=== PATIENT | male | born 1960 | race Caucasian/White ===

== ENCOUNTER 2018-01-28 14:25 | Inpatient (IN) | payer MEDICAID ==
[2018-01-28] MEDS ORDERED: NORMAL SALINE 500 ML IV ONE (16:28)
[2018-01-28] MEDS ORDERED: ONDANSETRON HCL INJ/PF 4 MG/2 ML SDV IV ONE (16:28)
--- NOTE | 2018-01-28 16:28 | ER Document Report ---
ED Medical Screen (RME) - General Chief Complaint: Blood Pressure Problem Stated Complaint: BLOOD PRESSURE ISSUES Time Seen by Provider: 01/28/18 16:27 Mode of Arrival: Ambulatory Information source: Patient Notes: This is a 57-year-old man with a history of COPD, hypertension, chronic back pain, 1 pack/day smoking who presents with dizziness, weakness, fluctuating blood pressure, decreased p.o. intake. Patient smokes 1 pack/day. He stopped drinking alcohol 3 years ago. TRAVEL OUTSIDE OF THE [place] IN LAST 30 DAYS: No - Related Data Allergies/Adverse Reactions: No Known Allergies Allergy (Unverified 06/19/13 05:12) Past Medical History - Past Medical History Cardiac Medical History: Reports: Hx Hypertension Pulmonary Medical History: Reports: Hx COPD Neurological Medical History: Denies: Hx Seizures Renal/ Medical History: Denies: Hx Peritoneal Dialysis Musculoskeltal Medical History: Reports Hx Musculoskeletal Deformity, Reports Hx Musculoskeletal Trauma Psychiatric Medical History: Reports: Hx Depression Past Surgical History: Reports: Hx Orthopedic Surgery - back - patient unclear on details - Immunizations Hx Diphtheria, Pertussis, Tetanus Vaccination: Yes Physical Exam - Vital signs Vitals: Temp Pulse Resp BP Pulse Ox 97.8 F 89 16 155/74 H 100 01/28/18 14:52 01/28/18 14:52 01/28/18 14:52 01/28/18 14:52 01/28/18 14:52 Course - Vital Signs Vital signs: Temp Pulse Resp BP Pulse Ox 97.8 F 89 16 155/74 H 100 01/28/18 14:52 01/28/18 14:52 01/28/18 14:52 01/28/18 14:52 01/28/18 14:52
[2018-01-28 17:24] LABS: ABSOLUTE BASOPHILS # (AUTO) 0.1 10^3/uL (0.0-0.2); ABSOLUTE EOSINOPHILS # (AUTO) 0.2 10^3/uL (0.0-0.6); ABSOLUTE LYMPHOCYTES (AUTO) 1.8 10^3/uL (0.5-4.7); ABSOLUTE NEUT (AUTO) 8.5 10^3/uL (1.7-8.2); BASOPHILS % (AUTO) 1.3 % (0-2); EOSINOPHILS % (AUTO) 1.5 % (0-6); HEMATOCRIT 33.5 % (37.9-51.0); HEMOGLOBIN 11.3 g/dL (13.5-17.0); LYMPHOCYTES % (AUTO) 15.4 % (13-45); MEAN CORPUSCULAR HGB CONC 33.7 g/dL (32.0-36.0); MEAN CORPUSCULAR VOLUME 83 fl (80-97); MONOCYTES % (AUTO) 8.3 % (3-13); PLATELET COUNT 497 10^3/uL (150-450); RED BLOOD COUNT 4.03 10^6/uL (4.35-5.55); RED CELL DISTRIBUTION WIDTH 15.9 % (11.5-14.0); SEGMENTED NEUTROPHILS % (AUTO) 73.5 % (42-78); TOTAL CELLS COUNTED % (AUTO) 100 %; WHITE BLOOD COUNT 11.6 10^3/uL (4.0-10.5)
[2018-01-28 17:43] LABS: ALANINE AMINOTRANSFERASE 17 U/L (21-72); ALBUMIN 3.5 g/dL (3.5-5.0); ALKALINE PHOSPHATASE 205 U/L (38-126); ANION GAP 14 (5-19); ASPARTATE AMINO TRANSFERASE 28 U/L (17-59); BILIRUBIN,DIRECT 0.4 mg/dL (0.0-0.4); BILIRUBIN,TOTAL 0.6 mg/dL (0.2-1.3); BLOOD UREA NITROGEN 13 mg/dL (7-20); CALCIUM 9.7 mg/dL (8.4-10.2); CARBON DIOXIDE 29 mmol/L (22-30); CHLORIDE 92 mmol/L (98-107); GLUCOSE 98 mg/dL (75-110); POTASSIUM 5.6 mmol/L (3.6-5.0); SODIUM 134.8 mmol/L (137-145); TOTAL PROTEIN 7.5 g/dL (6.3-8.2)
--- NOTE | 2018-01-28 18:00 | RADIOLOGY REPORT (SQ) ---
EXAM DESCRIPTION: HIP LEFT AP/LATERAL COMPLETED DATE/TIME: 01/28/2018 5:29 pm REASON FOR STUDY: left hip pain COMPARISON: None. NUMBER OF VIEWS: Two views. TECHNIQUE: AP pelvis and additional frog-leg view of the left hip. LIMITATIONS: None. FINDINGS: MINERALIZATION: Normal. LEFT HIP: No fracture or dislocation. No worrisome bone lesions. RIGHT HIP: No fracture or dislocation. No worrisome bone lesions. PUBIS AND ISCHIUM: No fracture. PELVIS: No fracture. SACRUM: No fracture or dislocation. No worrisome bone lesions. LOWER LUMBAR SPINE: No fracture or dislocation. No worrisome bone lesions. No significant disc disea se. SOFT TISSUES: No findings. OTHER: No other significant finding. IMPRESSION: NO RADIOGRAPHIC EVIDENCE OF ACUTE INJURY. TECHNICAL DOCUMENTATION: JOB ID: [id number] [place]-72 2010 [employer]- All Rights Reserved Reading location - IP/workstation name: [email or web address]
--- NOTE | 2018-01-28 18:03 | RADIOLOGY REPORT (SQ) ---
EXAM DESCRIPTION: CHEST 2 VIEWS COMPLETED DATE/TIME: 01/28/2018 5:29 pm REASON FOR STUDY: cough COMPARISON: 01/03/2014 TECHNIQUE: Frontal and lateral radiographic views of the chest acquired. NUMBER OF VIEWS: Two view. LIMITATIONS: None. FINDINGS: LUNGS AND PLEURA: No pneumothorax. Similar scarring at the left costophrenic angle. No p leural effusion. Significantly increased architectural distortion and parenchymal scarring- opacitie s in both lung apices, left greater than right. Slightly increased apical pleural thickening. Posts urgical changes are again noted in the left apex and upper mediastinal border. MEDIASTINUM AND HILAR STRUCTURES: Stable. HEART AND VASCULAR STRUCTURES: Stable. BONES: No acute findings. HARDWARE: None in the chest. OTHER: No other significant finding. IMPRESSION: Significantly increased architectural distortion and parenchymal scarring- opacities in both lung apices, left greater than right. Slightly increased apical pleural thickening. Postsurgic al changes are again noted in the left apex and upper mediastinal border. TECHNICAL DOCUMENTATION: JOB ID: [id number] [place]-72 2010 [employer]- All Rights Reserved Reading location - IP/workstation name: [email or web address]
[2018-01-28 18:51] LABS: APPEARANCE,URINE CLEAR; BILIRUBIN,URINE NEGATIVE (NEGATIVE); COLOR,URINE STRAW; GLUCOSE, URINE NEGATIVE (NEGATIVE); KETONES,URINE NEGATIVE (NEGATIVE); LEUKOCYTE ESTERASE,URINE NEGATIVE (NEGATIVE); NITRITE,URINE NEGATIVE (NEGATIVE); PROTEIN,URINE NEGATIVE (NEGATIVE); URINE SPECIFIC GRAVITY 1.003; UROBILINOGEN,URINE NEGATIVE mg/dL (<2.0)
[2018-01-28] MEDS ORDERED: LIDOCAINE 5% (700 MG) TRANSDERMAL ADH..PATCH TP ONE (21:15)
[2018-01-28] MEDS ORDERED: KETOROLAC TROMETHAMINE INJ/PF 30 MG/1 ML SDV IV ONE (21:15)
[2018-01-28] MEDS ORDERED: MORPHINE SULFATE IR 15 MG TABLET PO ONE (21:15)
--- NOTE | 2018-01-28 21:17 | ER Document Report ---
ED General - General Chief Complaint: Blood Pressure Problem Stated Complaint: BLOOD PRESSURE ISSUES Time Seen by Provider: 01/28/18 16:27 Mode of Arrival: Ambulatory Notes: Patient is a 57-year-old male with a past medical history of COPD, active smoker , hypertension, who presents with multiple complaints. It is initially somewhat difficult to ascertain exactly what the patient's primary complaint is but it does become clear after several minutes that his main concern is 3 weeks of feeling generally unwell having a persistent cough with sputum production as well as having diffuse body aches. He does also complain of chronic low back pain and right hip pain which are not new or different today. He also complains that his blood pressure fluctuates frequently. Nothing seems to improve or worsen his symptoms. He has not seen his general doctor regarding these concerns. He has not had fever at home. TRAVEL OUTSIDE OF THE [place] IN LAST 30 DAYS: No - Related Data Allergies/Adverse Reactions: No Known Allergies Allergy (Verified 01/28/18 18:15) Past Medical History - General Information source: Patient - Social History Smoking Status: Current Every Day Smoker Frequency of alcohol use: None Drug Abuse: None Lives with: Spouse/Significant other Family History: Reviewed & Not Pertinent Patient has suicidal ideation: No Patient has homicidal ideation: No - Past Medical History Cardiac Medical History: Reports: Hx Hypertension Pulmonary Medical History: Reports: Hx COPD Neurological Medical History: Denies: Hx Seizures Renal/ Medical History: Denies: Hx Peritoneal Dialysis Musculoskeletal Medical History: Reports Hx Musculoskeletal Deformity, Reports Hx Musculoskeletal Trauma Psychiatric Medical History: Reports: Hx Depression Past Surgical History: Reports: Hx Orthopedic Surgery - back - patient unclear on details - Immunizations Hx Diphtheria, Pertussis, Tetanus Vaccination: Yes Hx Pneumococcal Vaccination: 03/27/13 Review of Systems - Review of Systems Notes: Constitutional: Negative for fever. HENT: Negative for sore throat. Eyes: Negative for visual changes. Cardiovascular: Negative for chest pain. Respiratory: Positive for shortness of breath, positive for cough Gastrointestinal: Negative for abdominal pain, vomiting or diarrhea. Genitourinary: Negative for dysuria. Musculoskeletal: Positive for chronic low back pain Skin: Negative for rash. Neurological: Negative for headaches, weakness or numbness. 10 point ROS negative except as marked above and in HPI. Physical Exam - Vital signs Vitals: Temp Pulse Resp BP Pulse Ox 97.8 F 89 16 155/74 H 100 01/28/18 14:52 01/28/18 14:52 01/28/18 14:52 01/28/18 14:52 01/28/18 14:52 Interpretation: Hypertensive Notes: PHYSICAL EXAMINATION: GENERAL: Appears much older than stated age. In no acute distress HEAD: Atraumatic, normocephalic. EYES: Pupils equal round and reactive to light, extraocular movements intact, sclera anicteric, conjunctiva are normal. ENT: nares patent, oropharynx clear without exudates. Moderate dry mucous membranes. NECK: Normal range of motion, supple without lymphadenopathy LUNGS: Diminished breath sounds in all lung gonzalez most prominent in the bilateral upper lobes. Scattered expiratory wheezing. HEART: Regular rate and rhythm without murmurs ABDOMEN: Soft, nontender, normoactive bowel sounds. No guarding, no rebound. No masses appreciated. EXTREMITIES: Normal range of motion, no pitting or edema. No cyanosis. NEUROLOGICAL: No focal neurological deficits. Moves all extremities spontaneously and on command. PSYCH: Normal mood, normal affect. SKIN: Warm, Dry, normal turgor, no rashes or lesions noted. Course - Re-evaluation Re-evalutation: 01/28/18 21:16 Patient presents with multiple complaints although the main focus is related to a persistent cough that he has had with associated fatigue, body aches and feeling generally unwell. Patient's chest x-ray is quite abnormal with abnormal findings in the apices bilaterally which were not present in 2014. Patient has a remote history of exposure to TB but has never tested positive. No fungal exposures, exposures to asbestos, no chemical exposures. Long- standing smoker. Will CT the chest to further clarify what exactly is being identified on the chest x-ray. Labs are otherwise mostly unremarkable the exception of mild hyperkalemia. Patient does have chronic low back pain which is not new or different today and is not the primary focus of his visit. He does also complain about fluctuations of his blood pressure although it is consistently normal here today. 01/28/18 23:13 CT of the chest does show cavitary lesions in the left upper lobe, infiltrate in left upper lobe consistent with a pneumonia. Given the atypical nature of these findings I have discussed this case with the hospitalist Dr. Cowan to admit the patient. She has agreed and the patient is likewise agreeable. He has been started on levofloxacin in the interim. - Vital Signs Vital signs: Temp Pulse Resp BP Pulse Ox 97.8 F 89 19 169/109 H 98 01/28/18 14:52 01/28/18 14:52 01/29/18 00:01 01/29/18 00:01 01/29/18 00:01 - Laboratory Result Diagrams: 01/28/18 17:00 01/28/18 17:00 Laboratory results interpreted by me: 01/28/18 01/28/18 17:00 17:00 WBC 11.6 H RBC 4.03 L Hgb 11.3 L Hct 33.5 L RDW 15.9 H Plt Count 497 H Absolute Neutrophils 8.5 H Sodium 134.8 L Potassium 5.6 H Chloride 92 L ALT 17 L Alkaline Phosphatase 205 H - Diagnostic Test Radiology reviewed: Image reviewed, Reports reviewed Radiology results interpreted by me: 01/29/18 02:09 Chest x-ray scarring, possible infiltrate in the bilateral upper lobes Discharge - Discharge Clinical Impression: Cavitary lesion of lung Left upper lobe pneumonia Qualifiers: Pneumonia type: due to unspecified organism Qualified Code(s): J18.1 - Lobar pneumonia, unspecified organism Condition: Fair Disposition: ADMITTED OBSERVATION Admitting Provider: Hospitalist Unit Admitted: Telemetry
--- NOTE | 2018-01-28 22:07 | RADIOLOGY REPORT (SQ) ---
EXAM DESCRIPTION: CT CHEST WITH IV CONTRAST COMPLETED DATE/TME: 01/28/2018 21:15 CLINICAL HISTORY: 57 years, Male, cxr abnormalities This exam was performed according to our departmental dose-optimization program which includes automated exposure control, adjustment of the mA and/or kVp according to patient size and/or use of iterative reconstruction technique where applicable. Compared to chest x-ray dated 01/28/2018. FINDINGS: Aorta is mildly calcified without aneurysm. No significant mediastinal, hilar or axillary lymphadenopathy. No significant pleural or pericardial effusions. The visualized upper abdominal organs are within normal limits. Evaluation of the lung parenchyma demonstrates trachea and major airways to be patent. Marked scarring changes in the upper lobes including cavitary changes in the left upper lobe. Scarring changes in the lingula as well. No suspicious focal lung nodule or mass. Mild parenchymal airspace disease in the left upper lobe surrounding the cavitary and scarring changes may be due to superimposed pneumonia. IMPRESSION: Biapical scarring and emphysematous changes, particularly in the left upper lobe including cavitary changes. There may be superimposed pneumonia of the left upper lobe. No definite suspicious focal masses.
[2018-01-28] MEDS ORDERED: PROMETHAZINE HCL 25 MG TABLET PO PRN (23:20)
[2018-01-28] MEDS ORDERED: LEVOFLOXACIN 750 MG/D5W RTU 750 MG/150 ML RTUPB IV ONE (23:20)
[2018-01-28] MEDS ORDERED: ACETAMINOPHEN 325 MG TABLET PO PRN (23:20)
[2018-01-28] MEDS ORDERED: PROMETHAZINE HCL INJ 25 MG/1 ML VIAL IV PRN (23:20)
[2018-01-28] MEDS ORDERED: MAG HYDROX/AL HYDROX/SIMETH SUSP 30 ML UDCUP PO PRN (23:20)
[2018-01-28] MEDS ORDERED: HYDRALAZINE HCL INJ/PF 20 MG/1 ML SDV IV PRN (23:26)
[2018-01-28] MEDS ORDERED: NORMAL SALINE 1000 ML 1,000 ML IV PRN (23:32)
[2018-01-28] MEDS ORDERED: SODIUM POLYSTYRENE SULFONATE 15 GM/60 ML PO ONE (23:59)
--- NOTE | 2018-01-29 | PDOC H&P ---
History of Present Illness Admission Date/PCP: 01/28/2018 Dr. Shoemaker Patient complains of: Fluctuating blood pressure History of Present Illness: PHYLLIS GOODWIN is a 57 year old male with medical history of hypertension who comes to the emergency department initially complaining of fluctuating blood pressure, sometimes goes up to 180/90 and others it is measuring 154/45, associated with dizziness, headache, decreased appetite and unwellness feeling. Upon arrival to the emergency department his blood pressure was 155/74. Patient tells me that he has had persistent cough with clear sputum, shortness of breath, weight loss of 5 pounds in 3 weeks, symptoms are no new but has worsened lately. Chest x-ray with abnormal findings in both apices, subsequently CT of the chest was done and shows cavitary lesion in the left upper lobe with a possible infiltrate consistent with pneumonia and a large scar tissue. Patient does not require admission for antibiotics but the cavitary lesions are concerning and we will keep the patient under observation tonight with pulmonary consultation for evaluation and further recommendations. IV Levaquin given. Patient denies history of tuberculosis, denies ever having any person close to him with tuberculosis. Other complaints are chronic left hip pain for which he takes pain medications at home. Unfortunately patient still smokes 1 pack of cigarettes a day. Past Medical History Cardiac Medical History: Reports: Hypertension Pulmonary Medical History: Reports: Chronic Obstructive Pulmonary Disease (COPD) Psychiatric Medical History: Reports: Depression Past Surgical History Past Surgical History: Reports: Orthopedic Surgery - back - patient unclear on details Social History Smoking Status: Current Every Day Smoker - 1 pack/day Frequency of Alcohol Use: None - Used to be heavy drinker, quit 2 years ago Hx Recreational Drug Use: No Hx Prescription Drug Abuse: No Family History Family History: None Parental Family History Reviewed: Yes Children Family History Reviewed: NA Sibling(s) Family History Reviewed.: NA Medication/Allergy Home Medications: Lorazepam [Ativan 1 mg Tablet] 1 tab PO Q4H 01/03/14 Clonidine [Catapres-Tts 2 (0.2 mg/24 Hr) Transderm Ptch] 1 each TD Sa@10 #4 patch.tdwk 01/06/14 Folic Acid [Folvite 1 mg Tablet] 1 mg PO DAILY #30 tablet 01/06/14 Lisinopril [Prinivil 10 mg Tablet] 40 mg PO DAILY #0 tablet 01/06/14 Multivitamin [Tab-A-Princess (Multiple Vitamin) Tablet] 1 tab PO DAILY #30 tablet Nicotine [Nicoderm 21 mg/24 Hr Transderm Patch] 1 each TD DAILYP PRN #14 patch.td24 01/06/14 Omeprazole Magnesium [Prilosec Otc] 40 mg PO DAILY #0 tablet. 01/06/14 Oxazepam [Serax] 15 mg PO BID #10 capsule 01/06/14 Thiamine HCl [Thiamine 100 mg Tablet] 100 mg PO DAILY #30 tablet 01/06/14 Prednisone [Deltasone 10 mg Tablet] 10 mg PO ASDIR PRN #21 tablet 09/14/14 Tramadol HCl [Ultram] 50 mg PO Q4 PRN #20 tablet 09/14/14 Allergies/Adverse Reactions: No Known Allergies Allergy (Verified 01/28/18 18:15) Review of Systems Review of Systems: As outlined in the HPI, others negative Physical Exam Vital Signs: Temp Pulse Resp BP Pulse Ox 97.8 F 89 14 160/62 H 98 01/28/18 14:52 01/28/18 14:52 01/28/18 21:53 01/28/18 21:53 01/28/18 21:53 Intake & Output 01/27/18 01/28/18 01/29/18 07:59 06:59 06:59 Intake Total 500 Balance 500 Weight 61.2 kg Additional comments: General appearance: Well-developed, well-nourished, alert and cooperative, and appears to be in no acute distress Head: Normocephalic Eyes: PEERL, EOMI, vision is grossly intact. Ears: External auditory canal and tympanic membranes clear, hearing grossly intact. Nose: No nasal discharge. Throat: Oral cavity and pharynx normal. No inflammation, swelling, exudate or lesions. Neck: Neck supple, nontender without lymphadenopathy, masses or thyromegaly. Cardiac: Normal S1 and S2. No S3, S4 or murmurs. Rhythm is regular. There is no peripheral edema, cyanosis or pallor. Extremities are warm and well perfused. Capillary refill is less than 2 seconds. No carotid bruits. Lungs: Clear to auscultation and percussion without rales, rhonchi, wheezing or diminished breath sounds. Not using accessory muscles. Abdomen: Positive bowel sounds. Soft. Nondistended, nontender. No guarding or rebound. No masses. No hepatosplenomegaly Extremities: No significant deformity or joint abnormality. No edema. Peripheral pulses intact. No varicosities. Neurological: Cranial nerves II through XII grossly intact. Strength and sensation symmetric and intact throughout. Reflexes 2+ throughout. Skin: Skin normal color, texture and turgor with no lesions or eruptions, warm and dry. Psychiatric: The mental examination revealed the patient was oriented to person , place, and time. The patient was able to demonstrate good judgment on recent , without hallucinations, abnormal affect or abnormal behaviors. Results Laboratory Results: 01/28/18 17:00 01/28/18 17:00 01/28/18 01/28/18 01/28/18 17:00 17:00 18:35 WBC 11.6 H RBC 4.03 L Hgb 11.3 L Hct 33.5 L MCV 83 MCH 28.0 MCHC 33.7 RDW 15.9 H Plt Count 497 H Seg Neutrophils % 73.5 Lymphocytes % 15.4 Monocytes % 8.3 Eosinophils % 1.5 Basophils % 1.3 Absolute Neutrophils 8.5 H Absolute Lymphocytes 1.8 Absolute Monocytes 1.0 Absolute Eosinophils 0.2 Absolute Basophils 0.1 Sodium 134.8 L Potassium 5.6 H Chloride 92 L Carbon Dioxide 29 Anion Gap 14 BUN 13 Creatinine 0.68 Est GFR ( Amer) > 60 Est GFR (Non-Af Amer) > 60 Glucose 98 Calcium 9.7 Total Bilirubin 0.6 AST 28 ALT 17 L Alkaline Phosphatase 205 H Total Protein 7.5 Albumin 3.5 Urine Color STRAW Urine Appearance CLEAR Urine pH 7.0 Ur Specific [place] 1.003 Urine Protein NEGATIVE Urine Glucose (UA) NEGATIVE Urine Ketones NEGATIVE Urine Blood NEGATIVE Urine Nitrite NEGATIVE Ur Leukocyte Esterase NEGATIVE Urine WBC (Auto) 1 Impressions: Chest X-Ray 01/28/18 16:27 IMPRESSION: Significantly increased architectural distortion and parenchymal scarring- opacities in both lung apices, left greater than right. Slightly increased apical pleural thickening. Postsurgical changes are again noted in the left apex and upper mediastinal border. Hip X-Ray 01/28/18 16:27 IMPRESSION: NO RADIOGRAPHIC EVIDENCE OF ACUTE INJURY. Chest CT 01/28/18 21:15 IMPRESSION: Biapical scarring and emphysematous changes, particularly in the left upper lobe including cavitary changes. There may be superimposed pneumonia of the left upper lobe. No definite suspicious focal masses. Assessment & Plan - Diagnosis (1) Cavitary lesion of lung Is this a current diagnosis for this admission?: Yes Plan: Patient comes with respiratory symptoms that has been getting worse for the last 3 weeks, patient tells me that has been fluctuating, CT of the chest shows left apical infiltrates with cavitary lesions and scar tissue. Patient has been started on IV Levaquin and I will continue with this medication. I am placing pulmonary consultation for evaluation and further recommendations. The sputum cultures, ABG and quantiferon order. Nebulizer treatments as needed, incentive spirometry, RT consult. (2) Left upper lobe pneumonia Qualifiers: Pneumonia type: due to unspecified organism Qualified Code(s): J18.1 - Lobar pneumonia, unspecified organism Is this a current diagnosis for this admission?: Yes Plan: As above (3) Hyperkalemia Is this a current diagnosis for this admission?: Yes Plan: Potassium 5.6, given 1 L of IV fluids and 15 mg of p.o. Kayexalate. Hold lisinopril. (4) Tobacco dependence Is this a current diagnosis for this admission?: Yes Plan: Nicotine transdermal 24 mg daily. (5) DVT prophylaxis Is this a current diagnosis for this admission?: Yes Plan: Lovenox (6) Hypertension Qualifiers: Hypertension type: essential hypertension Qualified Code(s): I10 - Essential (primary) hypertension Is this a current diagnosis for this admission?: Yes Plan: Patient complains of fluctuating. Sometimes elevated sometimes in the lower side, will resume his BP medications as currently is 155/74, holding lisinopril for the hyperkalemia. IV hydralazine as needed. Telemetry monitoring. - Time Time Spent: 50 to 70 Minutes - Plan Summary Plan Summary: Plan discussed with patient and fianc at the bedside, agree with it.
[2018-01-29] MEDS: KETOROLAC TROMETHAMINE INJ/PF 30 MG/1 ML SDV IV PRN ×4 (02:50→21:46)
[2018-01-29 05:07] LABS: HEMATOCRIT 29.8 % (37.9-51.0); HEMOGLOBIN 10.5 g/dL (13.5-17.0); MEAN CORPUSCULAR HEMOGLOBIN 28.6 pg (27.0-33.4); MEAN CORPUSCULAR HGB CONC 35.2 g/dL (32.0-36.0); MEAN CORPUSCULAR VOLUME 81 fl (80-97); PLATELET COUNT 406 10^3/uL (150-450); RED BLOOD COUNT 3.66 10^6/uL (4.35-5.55); RED CELL DISTRIBUTION WIDTH 15.7 % (11.5-14.0); WHITE BLOOD COUNT 9.7 10^3/uL (4.0-10.5)
[2018-01-29 05:22] LABS: ANION GAP 15 (5-19); BLOOD UREA NITROGEN 11 mg/dL (7-20); CALCIUM 9.1 mg/dL (8.4-10.2); CARBON DIOXIDE 23 mmol/L (22-30); CHLORIDE 98 mmol/L (98-107); GLUCOSE 102 mg/dL (75-110); SODIUM 136.4 mmol/L (137-145)
[2018-01-29 05:52] LABS: POTASSIUM 4.4 mmol/L (3.6-5.0)
--- NOTE | 2018-01-29 07:48 | Physician Advisory Note ---
Physician Advisor ProgressNote .: Pursuant to the plan for [facility], I have reviewed the medical record for this patient. Physician Advisor Statement: Please consider documenting, if you agree: 1. "PNA, suspect gram-___ type" 2. "Acute hyponatremia, possibly due to " Status: Medicaid pt, approp'ly Obs so far w/expectation of d/c home today on cont'd outpt abx. If, however, a clinical issue develops/persists that requires ongoing hospital level care, such as need for resp isolation on IV abx, please document concerns & may then be appropriate for change to Inpt status. Thanks! CK
[2018-01-29] MEDS ORDERED: OXYCODONE-ACETAMINOPHEN 5-325 MG TABLET PO PRN (09:34)
[2018-01-29] MEDS ORDERED: PROMETHAZINE HCL INJ 25 MG/1 ML VIAL IV PRN (10:00)
[2018-01-29] MEDS: ENOXAPARIN SODIUM INJ 40 MG/0.4 ML DISP.SYRIN SUBCUT SCH (10:11)
--- NOTE | 2018-01-29 11:26 | PDOC PROGRESS REPORT ---
Subjective Progress Note for:: 01/29/18 Subjective:: Doing better, complains of chronic back pain--uses Percocet at home and goes to pain clinic. Still with cough, productive, denies fever or chills at this time. He is still on droplet precautions/respiratory isolation pending obtaining AFB's x3 samples. Reason For Visit: BLOOD PRESSURE ISSUES Physical Exam Vital Signs: Temp Pulse Resp BP Pulse Ox 98.1 F 76 16 168/75 H 100 01/29/18 07:54 01/29/18 07:54 01/29/18 07:54 01/29/18 07:54 01/29/18 07:54 Intake & Output 01/28/18 01/29/18 01/30/18 06:59 06:59 06:59 Intake Total 150 Balance 150 Weight 60.8 kg GENERAL: Well-developed, no acute distress HEENT: Normocephalic/atraumatic NECK supple, no JVD CARDIOVASCULAR: RRR, normal S1-S2 LUNGS: CTA bilaterally ABDOMEN: Soft, NT, NL bowel sounds EXTREMITIES: No edema, clubbing, cyanosis NEUROLOGICAL: Alert, oriented x 3, nonfocal Results Laboratory Results: 01/29/18 04:40 01/29/18 04:40 01/29/18 01/29/18 04:40 04:40 WBC 9.7 RBC 3.66 L Hgb 10.5 L Hct 29.8 L MCV 81 MCH 28.6 MCHC 35.2 RDW 15.7 H Plt Count 406 Sodium 136.4 L Potassium 4.4 D Chloride 98 Carbon Dioxide 23 Anion Gap 15 BUN 11 Creatinine 0.55 Est GFR ( Amer) > 60 Est GFR (Non-Af Amer) > 60 Glucose 102 Calcium 9.1 Impressions: Chest X-Ray 01/28/18 16:27 IMPRESSION: Significantly increased architectural distortion and parenchymal scarring- opacities in both lung apices, left greater than right. Slightly increased apical pleural thickening. Postsurgical changes are again noted in the left apex and upper mediastinal border. Hip X-Ray 01/28/18 16:27 IMPRESSION: NO RADIOGRAPHIC EVIDENCE OF ACUTE INJURY. Chest CT 01/28/18 21:15 IMPRESSION: Biapical scarring and emphysematous changes, particularly in the left upper lobe including cavitary changes. There may be superimposed pneumonia of the left upper lobe. No definite suspicious focal masses. Assessment & Plan - Diagnosis (1) Left upper lobe pneumonia Qualifiers: Pneumonia type: due to unspecified organism Qualified Code(s): J18.1 - Lobar pneumonia, unspecified organism Is this a current diagnosis for this admission?: Yes Plan: Suspect community-acquired. Unknown bacterial type at this time. Follow-up sputum AFB and bacterial culture rsults. We will continue antibiotics with Levaquin at this time. Encouraging is that leukocytosis improved. (2) Cavitary lesion of lung Is this a current diagnosis for this admission?: Yes Plan: Pulmonology consult pending. Sputum being for AFB to rule out TB (3) Hypertension Qualifiers: Hypertension type: essential hypertension Qualified Code(s): I10 - Essential (primary) hypertension Is this a current diagnosis for this admission?: Yes (4) Tobacco dependence Is this a current diagnosis for this admission?: Yes Plan: Smoking cessation counseling. Will treat with nicotine patch. (5) Hyperkalemia Is this a current diagnosis for this admission?: No Plan: Resolved. (6) Chronic back pain Is this a current diagnosis for this admission?: Yes Plan: Restart Percocet 5/325 mg every 6 hours as needed.
[2018-01-29] MEDS ORDERED: (PENDING PHARMACY ID) (Oxycodone Hcl/Acetaminophen [Percocet 10-325 Mg Tablet] 1 EACH) PO SCH (14:00)
[2018-01-29] MEDS: TIZANIDINE HCL 4 MG TABLET PO SCH ×2 (14:20→21:45)
[2018-01-29] MEDS ORDERED: ACETAMINOPHEN 325 MG TABLET PO PRN (15:11)
[2018-01-29] MEDS ORDERED: (PENDING PHARMACY ID) (Naproxen [Naprosyn] 500 MG) PO SCH (18:00)
[2018-01-29] MEDS ORDERED: (PENDING PHARMACY ID) (Gabapentin Enacarbil [Horizant] 600 MG) PO SCH (18:00)
[2018-01-29] MEDS: OXYCODONE HCL IR 5 MG TABLET PO SCH (18:04)
[2018-01-29] MEDS: BUDESONIDE/FORMOTEROL 160-4.5 MCG 60 PUFF/6 GM MDI IH SCH (18:04)
[2018-01-29] MEDS: OXYCODONE-ACETAMINOPHEN 5-325 MG TABLET PO SCH (18:05)
[2018-01-29] MEDS: NAPROXEN 250 MG TABLET PO SCH (21:45)
[2018-01-29] MEDS: DULOXETINE HCL 30 MG CAPSULE.DR PO SCH (21:45)
[2018-01-29] MEDS ORDERED: (PENDING PHARMACY ID) (Zolpidem Tartrate [Ambien] 10 MG) PO SCH (22:00)
[2018-01-29] MEDS ORDERED: LEVOFLOXACIN 750 MG/D5W RTU 750 MG/150 ML RTUPB IV SCH ×2 (22:00)
[2018-01-29] MEDS ORDERED: ZOLPIDEM TARTRATE 5 MG TABLET PO SCH (22:00)
[2018-01-29] MEDS: CLONIDINE HCL 0.1 MG TABLET PO SCH (22:15)
[2018-01-29] MEDS: TIOTROPIUM BROMIDE DPI 5 CAP/KIT (18 MCG/CAP) IH SCH (22:24)
[2018-01-30] MEDS: OXYCODONE HCL IR 5 MG TABLET PO SCH ×5 (01:30→23:21)
[2018-01-30] MEDS: OXYCODONE-ACETAMINOPHEN 5-325 MG TABLET PO SCH ×5 (01:31→23:21)
[2018-01-30] MEDS: TIZANIDINE HCL 4 MG TABLET PO SCH ×3 (05:09→21:16)
--- NOTE | 2018-01-30 08:05 | Physician Advisory Note ---
Physician Advisor ProgressNote .: Pursuant to the plan for [facility], I have reviewed the medical record for this patient. Physician Advisor Statement: Nice description by nurse in "Notes" section overnight of significant dizziness & being off balance with BP drop from 163/74 to 96/79 in 30 min, after taking PM meds. Please consider documenting, if you agree: 1. "KRISTY Pneumonia, [probably CAP], suspect likely type [gram-pos? gram- neg? TB? - what is being suspected that is being tx'd w/Levaquin? - If suspicion of type changes after cx results return, subsequent documentation can reflect that change in impression.] 2. Medical necessity: nice documentation 01/29 of reason this Medicaid pt continues to need hospitalization (still on resp isolation pending 3 samples for AFB). -> Therefore, appropriate for Inpatient status. Thanks! CK
[2018-01-30] MEDS: NAPROXEN 250 MG TABLET PO SCH ×2 (09:33→21:16)
[2018-01-30] MEDS: CLONIDINE HCL 0.1 MG TABLET PO SCH (09:33)
[2018-01-30] MEDS: ENOXAPARIN SODIUM INJ 40 MG/0.4 ML DISP.SYRIN SUBCUT SCH (09:33)
[2018-01-30] MEDS: LISINOPRIL 10 MG TABLET PO SCH (09:34)
[2018-01-30] MEDS: BUDESONIDE/FORMOTEROL 160-4.5 MCG 60 PUFF/6 GM MDI IH SCH ×2 (09:34→17:20)
[2018-01-30] MEDS ORDERED: (PENDING PHARMACY ID) (Lisinopril [Prinivil] 20 MG) PO SCH (10:00)
--- NOTE | 2018-01-30 13:13 | PDOC PROGRESS REPORT ---
Subjective Progress Note for:: 01/30/18 Subjective:: Doing better, back pain better with resuming his home Percocet and Zanaflex. Still with cough, productive, denies fever or chills at this time. He is still on droplet precautions/respiratory isolation pending obtaining AFB's x3 samples. Reason For Visit: PNEUMONIA,CAVITARY LESION OF LUNG Physical Exam Vital Signs: Temp Pulse Resp BP Pulse Ox 97.4 F 77 16 133/56 H 100 01/30/18 11:29 01/30/18 11:29 01/30/18 11:29 01/30/18 11:29 01/30/18 11:29 Intake & Output 01/29/18 01/30/18 01/31/18 06:59 06:59 06:59 Intake Total 150 2082 Output Total 1950 Balance 150 132 Weight 60.8 kg 61.5 kg GENERAL: Well-developed, no acute distress HEENT: Normocephalic/atraumatic NECK supple, no JVD CARDIOVASCULAR: RRR, normal S1-S2 LUNGS: Few crackles left upper lung zone ABDOMEN: Soft, NT, NL bowel sounds EXTREMITIES: No edema, clubbing, cyanosis NEUROLOGICAL: Alert, oriented x 3, nonfocal Results Laboratory Results: 01/29/18 04:40 01/29/18 04:40 Impressions: Chest X-Ray 01/28/18 16:27 IMPRESSION: Significantly increased architectural distortion and parenchymal scarring- opacities in both lung apices, left greater than right. Slightly increased apical pleural thickening. Postsurgical changes are again noted in the left apex and upper mediastinal border. Hip X-Ray 01/28/18 16:27 IMPRESSION: NO RADIOGRAPHIC EVIDENCE OF ACUTE INJURY. Chest CT 01/28/18 21:15 IMPRESSION: Biapical scarring and emphysematous changes, particularly in the left upper lobe including cavitary changes. There may be superimposed pneumonia of the left upper lobe. No definite suspicious focal masses. Assessment & Plan - Diagnosis (1) Left upper lobe pneumonia Qualifiers: Pneumonia type: due to unspecified organism Qualified Code(s): J18.1 - Lobar pneumonia, unspecified organism Is this a current diagnosis for this admission?: Yes Plan: Suspect community-acquired. Unknown bacterial type at this time. Will continue to follow-up sputum AFB and bacterial culture results. We will also continue antibiotics with Levaquin at this time. CBC in a.m. Follow chest x- ray in a.m.. (2) Cavitary lesion of lung Is this a current diagnosis for this admission?: Yes Plan: Sputum being checked for AFB to rule out TB. Follow-up chest x-ray in a.m. (3) Hypertension Qualifiers: Hypertension type: essential hypertension Qualified Code(s): I10 - Essential (primary) hypertension Is this a current diagnosis for this admission?: Yes Plan: Patient has fluctuating blood pressure. Will decrease clonidine, reduce Zanaflex to 2 mg every 6 hours as needed. Continue to monitor BP. (4) Tobacco dependence Is this a current diagnosis for this admission?: Yes Plan: Smoking cessation counseling. Treat with nicotine patch. (5) Chronic back pain Is this a current diagnosis for this admission?: Yes Plan: Continue restart Percocet 10/325 mg every 6 hours as needed, decrease Zanaflex dose. (6) Hyperkalemia Is this a current diagnosis for this admission?: No Plan: Resolved. - Inpatient Certification Based on my medical assessment, after consideration of the patient's comorbidities, presenting symptoms, or acuity I expect that the services needed warrant INPATIENT care.: Yes I certify that my determination is in accordance with my understanding of Medicare's requirements for reasonable and necessary INPATIENT services [42 CFR 412.3e].: Yes Medical Necessity: Significant Comorbidiites Make Outpatient Treatment Too Risky , Need Close Monitoring Due to Risk of Patient Decompensation, Need for IV Antibiotics, Risk of Diagnosis Which Will Require Inpatient Eval/Care/Monitoring
[2018-01-30] MEDS: KETOROLAC TROMETHAMINE INJ/PF 30 MG/1 ML SDV IV PRN ×2 (14:58→21:17)
[2018-01-30] MEDS: TIOTROPIUM BROMIDE DPI 5 CAP/KIT (18 MCG/CAP) IH SCH (21:12)
[2018-01-30] MEDS: LEVOFLOXACIN 750 MG TABLET PO SCH (21:15)
[2018-01-30] MEDS: DULOXETINE HCL 30 MG CAPSULE.DR PO SCH (21:15)
[2018-01-30] MEDS: ZOLPIDEM TARTRATE 5 MG TABLET PO SCH (21:17)
[2018-01-31] MEDS: KETOROLAC TROMETHAMINE INJ/PF 30 MG/1 ML SDV IV PRN ×4 (03:01→21:59)
[2018-01-31 05:13] LABS: ABSOLUTE EOSINOPHILS # (AUTO) 0.2 10^3/uL (0.0-0.6); ABSOLUTE LYMPHOCYTES (AUTO) 1.2 10^3/uL (0.5-4.7); ABSOLUTE MONOCYTES (AUTO) 0.8 10^3/uL (0.1-1.4); ABSOLUTE NEUT (AUTO) 5.7 10^3/uL (1.7-8.2); BASOPHILS % (AUTO) 0.6 % (0-2); EOSINOPHILS % (AUTO) 2.2 % (0-6); HEMATOCRIT 28.4 % (37.9-51.0); HEMOGLOBIN 9.6 g/dL (13.5-17.0); LYMPHOCYTES % (AUTO) 15.6 % (13-45); MEAN CORPUSCULAR HEMOGLOBIN 27.7 pg (27.0-33.4); MEAN CORPUSCULAR HGB CONC 33.9 g/dL (32.0-36.0); MEAN CORPUSCULAR VOLUME 82 fl (80-97); MONOCYTES % (AUTO) 9.5 % (3-13); PLATELET COUNT 380 10^3/uL (150-450); RED BLOOD COUNT 3.47 10^6/uL (4.35-5.55); RED CELL DISTRIBUTION WIDTH 15.9 % (11.5-14.0); SEGMENTED NEUTROPHILS % (AUTO) 72.1 % (42-78); TOTAL CELLS COUNTED % (AUTO) 100 %
[2018-01-31 05:30] LABS: ANION GAP 14 (5-19); BLOOD UREA NITROGEN 14 mg/dL (7-20); CALCIUM 9.1 mg/dL (8.4-10.2); CARBON DIOXIDE 26 mmol/L (22-30); CHLORIDE 98 mmol/L (98-107); GLUCOSE 105 mg/dL (75-110); POTASSIUM 5.2 mmol/L (3.6-5.0); SODIUM 138.2 mmol/L (137-145)
[2018-01-31] MEDS: TIZANIDINE HCL 4 MG TABLET PO SCH ×3 (05:46→21:08)
[2018-01-31] MEDS: OXYCODONE HCL IR 5 MG TABLET PO SCH ×4 (05:46→23:02)
[2018-01-31] MEDS: OXYCODONE-ACETAMINOPHEN 5-325 MG TABLET PO SCH ×4 (05:46→23:02)
--- NOTE | 2018-01-31 08:46 | RADIOLOGY REPORT (SQ) ---
EXAM DESCRIPTION: CHEST 2 VIEWS COMPLETED DATE/TIME: 01/31/2018 8:25 am REASON FOR STUDY: PNA COMPARISON: 01/28/2018 NUMBER OF VIEWS: Two view TECHNIQUE: Frontal and lateral radiographic images of the chest acquired. LIMITATIONS: None. FINDINGS: LUNGS AND PLEURA: Stable appearance. MEDIASTINUM AND HILAR STRUCTURES: Stable heart size and mediastinal structures. HEART AND VASCULAR STRUCTURES: Stable appearance. BONES: No acute findings. HARDWARE: None in the chest. OTHER: No other significant finding. IMPRESSION: Stable appearance of the chest with persistent volume loss and scarring in both upper lo bes left greater than right. TECHNICAL DOCUMENTATION: JOB ID: [id number] [employer]- All Rights Reserved Reading location - IP/workstation name: [email or web address]
[2018-01-31] MEDS: ENOXAPARIN SODIUM INJ 40 MG/0.4 ML DISP.SYRIN SUBCUT SCH (09:05)
[2018-01-31] MEDS: LISINOPRIL 10 MG TABLET PO SCH (09:05)
[2018-01-31] MEDS: NAPROXEN 250 MG TABLET PO SCH ×2 (09:05→21:09)
[2018-01-31] MEDS: NICOTINE 21 MG/24 HR PATCH.TD24 TD SCH (09:05)
[2018-01-31] MEDS: BUDESONIDE/FORMOTEROL 160-4.5 MCG 60 PUFF/6 GM MDI IH SCH ×2 (09:06→18:12)
--- NOTE | 2018-01-31 11:00 | CONSULTATION REPORT E ---
Consultation Report NAME: PHYLLIS GOODWIN : 1960 AGE: 57Y DATE: 01/29/2018 335 A TO: ROSARIO KAMARA M.D. FROM: NELY MESA M.D. Requesting Physician HISTORY OF PRESENT ILLNESS: The patient is a 57-year-old male who came in with increased shortness of breath over the last few days, worsening a few hours prior to the admission, and thus, patient went to the emergency room. The patient smokes about a pack a day since he was 16 years old, so about 41 years. Denies any fever. Denies any chills. Denies any increasing purulent sputum production or hemoptysis. The patient claims that he had lost weight, about 10 pounds, over the last 2-3 weeks and has a poor appetite. PAST MEDICAL HISTORY: 1. History of hypertension. 2. COPD. 3. Depression. SURGICAL HISTORY: Orthopedic surgery back. SOCIAL HISTORY: Smokes a pack a day for about 41 years. ALLERGIES: No known drug allergies. FAMILY HISTORY: Unremarkable. MEDICATIONS AT HOME: Include: 1. Lorazepam. 2. Clonidine. 3. Folic acid. 4. Lisinopril. 5. Multivitamins. 6. Nicotine. 7. Prilosec. 9. Thiamine. 10. Prednisone. 12. Tramadol. REVIEW OF SYSTEMS: CONSTITUTIONAL: No fever or chills. EYES: No jaundice or pallor. EARS, NOSE, AND THROAT: No ear drainage. No nasal discharge. CHEST AND LUNGS: Complains about decreased shortness of breath gradually worsening over the last few hours prior to this admission. No hemoptysis. Denies any purulent sputum production and some chest tightness. CARDIOVASCULAR: No recent history of heart attack, angina, or cardiac arrhythmias. GASTROINTESTINAL: No nausea, vomiting, diarrhea. GENITOURINARY: No dysuria, hematuria. EXTREMITIES: No joint swelling. No cellulitis. PHYSICAL EXAMINATION: GENERAL: The patient is awake, alert, coherent, oriented x3, afebrile, not in apparent respiratory distress. VITAL SIGNS: Temperature of 97.8 with a T-max of 97.9, heart rate is 76, blood pressure is 152/69, oxygen saturation is 98% on room air. EYES: No jaundice or pallor. EARS, NOSE, THROAT: No ear drainage noted. No nasal discharge. CHEST AND LUNGS: No wheezing. No rhonchi. No coarse crackles. CARDIOVASCULAR: S1, S2 distinct. Normal rate. Regular rhythm. ABDOMEN: Flabby. Positive bowel sounds. Soft, nondistended, nontender. EXTREMITIES: No joint swelling. No cellulitis. LABORATORY: CBC done today showed white count of 9.7, was 11.6 yesterday. Hemoglobin is 10.5, hematocrit is 29.8, platelet count is 406. Chemistry done today showed sodium is 136.4, potassium is 4.4, chloride 98, CO2 is 33, BUN 11, creatinine 0.5, glucose is 102, and calcium is 9.1. Serum alcohol level is 0 and urinalysis appeared unremarkable. Sputum AFB smears are all pending. Sputum AFB culture done today is pending, smear pending. IMAGING: Chest CT scan showed multiple cavitary lesions with severe emphysema, cavitary lesions in the left lung suspected, maybe bulla formation with pneumonia. ASSESSMENT: 1. Underlying malignancy cannot be excluded. 2. History of COPD/emphysema. PLAN AND RECOMMENDATIONS: 1. Sputum culture for AFB and bacterial cultures. -every morning x3 days. 3. Agree with Levaquin 750 mg daily IV. 4. Recommend Spiriva inhaler 1 puff daily. 5. Agree with Symbicort 160 mcg 2 puffs twice a day. 6. Albuterol inhaler as needed. 7. We will consider flexible bronchoscopy after 3 negative AFB smears. DICTATING PHYSICIAN: ROSARIO KAMARA MD,CHARISSE,MPH [id number] PHY#: [id number] ID: [id number] JOB#: [id number] ACCT: [id number] cc:ROSARIO KAMARA M.D. > MTDD
--- NOTE | 2018-01-31 16:13 | PDOC PROGRESS REPORT ---
Subjective Progress Note for:: 01/31/18 Subjective:: Doing better, still with back pains, but his medications-. Still with cough, productive, denies fever or chills at this time. He is still on droplet precautions/respiratory isolation pending obtaining AFB's x3 samples. Reason For Visit: PNEUMONIA,CAVITARY LESION OF LUNG Physical Exam Vital Signs: Temp Pulse Resp BP Pulse Ox 97.3 F 86 16 138/78 H 99 01/31/18 11:20 01/31/18 11:20 01/31/18 11:20 01/31/18 11:20 01/31/18 11:20 Intake & Output 01/30/18 01/31/18 02/01/18 06:59 06:59 06:59 Intake Total 2081 774 829 Output Total 7919 2800 1200 Balance 132 -371 Weight 61.5 kg 62.4 kg GENERAL: Well-developed, no acute distress HEENT: Normocephalic/atraumatic NECK supple, no JVD CARDIOVASCULAR: RRR, normal S1-S2 LUNGS: Slight crackles left upper lung zone ABDOMEN: Soft, NT, NL bowel sounds EXTREMITIES: No edema, clubbing, cyanosis NEUROLOGICAL: Alert, oriented x 3, nonfocal Results Laboratory Results: 01/31/18 04:51 01/31/18 04:51 01/31/18 01/31/18 04:51 04:51 WBC 8.0 RBC 3.47 L Hgb 9.6 L Hct 28.4 L MCV 82 MCH 27.7 MCHC 33.9 RDW 15.9 H Plt Count 380 Seg Neutrophils % 72.1 Lymphocytes % 15.6 Monocytes % 9.5 Eosinophils % 2.2 Basophils % 0.6 Absolute Neutrophils 5.7 Absolute Lymphocytes 1.2 Absolute Monocytes 0.8 Absolute Eosinophils 0.2 Absolute Basophils 0.0 Sodium 138.2 Potassium 5.2 H Chloride 98 Carbon Dioxide 26 Anion Gap 14 BUN 14 Creatinine 0.65 Est GFR ( Amer) > 60 Est GFR (Non-Af Amer) > 60 Glucose 105 Calcium 9.1 01/29/18 02:07 Sputum Gram Stain - Final 01/29/18 02:07 Sputum Sputum Culture - Final Yeast, Not Yvette Albicans Reduced Normal Aimee 01/31/18 03:15 Sputum Gram Stain - Final 01/31/18 03:15 Sputum Sputum Culture - Final 01/29/18 02:07 Sputum AFB Smear Concentration - Final 01/29/18 02:07 Sputum Acid Fast Bacilli Smear - Final Impressions: Hip X-Ray 01/28/18 16:27 IMPRESSION: NO RADIOGRAPHIC EVIDENCE OF ACUTE INJURY. Chest CT 01/28/18 21:15 IMPRESSION: Biapical scarring and emphysematous changes, particularly in the left upper lobe including cavitary changes. There may be superimposed pneumonia of the left upper lobe. No definite suspicious focal masses. Chest X-Ray 01/31/18 07:00 IMPRESSION: Stable appearance of the chest with persistent volume loss and scarring in both upper lobes left greater than right. Assessment & Plan - Diagnosis (1) Left upper lobe pneumonia Qualifiers: Pneumonia type: due to unspecified organism Qualified Code(s): J18.1 - Lobar pneumonia, unspecified organism Is this a current diagnosis for this admission?: Yes Plan: Suspect community-acquired. Will continue to follow-up sputum AFB and bacterial culture results. We will continue antibiotics with Levaquin at this time, especially with improving leukocytosis. Awaiting negative sputum AFB. I am not sure of the significance of positive yeast in sputum at this time. It may be colonization. Will await medical orderly's comments. I have left a message for Dr. Araujo to call me (2) Cavitary lesion of lung Is this a current diagnosis for this admission?: Yes Plan: Sputum being checked for AFB to rule out TB. Dr. Araujo of pulmonology consultation appreciated. Patient may need bronchoscopy after negative EMG. (3) Hypertension Qualifiers: Hypertension type: essential hypertension Qualified Code(s): I10 - Essential (primary) hypertension Is this a current diagnosis for this admission?: Yes Plan: Patient's blood pressures were stable. Will continue d/c clonidine, reduced Zanaflex to 2 mg every 6 hours as needed. Continue to monitor BPs. (4) Tobacco dependence Is this a current diagnosis for this admission?: Yes Plan: Smoking cessation counseling. Continue with treat with nicotine patch. (5) Chronic back pain Is this a current diagnosis for this admission?: Yes Plan: Continue restart Percocet 10/325 mg every 6 hours as needed, Zanaflex. (6) Hyperkalemia Is this a current diagnosis for this admission?: No
[2018-01-31] MEDS: TIOTROPIUM BROMIDE DPI 5 CAP/KIT (18 MCG/CAP) IH SCH (21:08)
[2018-01-31] MEDS: LEVOFLOXACIN 750 MG TABLET PO SCH (21:08)
[2018-01-31] MEDS: DULOXETINE HCL 30 MG CAPSULE.DR PO SCH (21:09)
[2018-01-31] MEDS: ZOLPIDEM TARTRATE 5 MG TABLET PO SCH (21:09)
--- NOTE | 2018-01-31 22:32 | PROGRESS NOTE E ---
Progress Note NAME: PHYLLIS GOODWIN : 1960 AGE: 57Y DATE: 01/31/2018 ROOM: 335 SUBJECTIVE: The patient is a 57-year-old male who came in with increased shortness of breath and chest tightness. Had a chest CT scan showing crepitation of both lungs. Patient claims that he is coughing yellow-green phlegm but no hemoptysis. Currently feeling a lot better. On Levaquin 750 mg daily. Denies any vomiting, diarrhea, or stomach pain or abdominal pain. OBJECTIVE: GENERAL: The patient is awake, alert, coherent, oriented x3. VITAL SIGNS: Afebrile, not in apparent respiratory distress with blood pressure of 138/78, heart rate of 73, temperature is 97.3 with a T-max of 98 degrees Fahrenheit, respiratory 16, saturation is 99% on room air. EYES: No jaundice or pallor. EARS, NOSE, THROAT: No ear drainage noted. No nasal discharge. HEAD AND NECK: No scalp swelling. No neck tenderness. CHEST AND LUNGS: No wheezing. No rhonchi. No coarse crackles. CARDIOVASCULAR: S1, S2 distinct. Normal rate. Regular rhythm. ABDOMEN: Flabby. Positive bowel sounds. Nondistended. EXTREMITIES: No joint swelling. No cellulitis. LABORATORY: CBC done today shows white count of 8, hemoglobin is 9.6, hematocrit 38.4, platelet count is 380. Chemistry done today shows sodium 138, potassium is 5.2, chloride 98, CO2 is 36, BUN is 14, creatinine 0.65, glucose 105 and calcium is 9.1. Sputum culture was negative smear for the first day, the second day and today are still pending. The first specimen for sputum AFB was sent earlier today and was rejected. Patient provided another sputum sample culture; sputum was sent. ASSESSMENT: 1. CREPITATION, BILATERAL MORE ON THE LEFT THAN ON THE RIGHT. POSSIBLE TB. 2. PNEUMONIA COULD NOT BE COMPLETELY EXCLUDED IN AN UNDERLYING SEVERE EMPHYSEMA BULLA FORMATION. 3. HISTORY OF COPD/EMPHYSEMA. PLAN/RECOMMENDATIONS: 1. Will try to schedule patient for flexible bronchoscopy on Monday morning after 3 negative sputum AB results. 2. Will give oral antibiotics. DICTATING PHYSICIAN: ROSARIO KAMARA MD,CHARISSE,MPH [id number] [id number] PHY#: [id number] ID: [id number] JOB#: [id number] ACCT: [id number] cc: > MAHSAD
[2018-02-01 05:19] LABS: ABSOLUTE BASOPHILS # (AUTO) 0.1 10^3/uL (0.0-0.2); ABSOLUTE EOSINOPHILS # (AUTO) 0.3 10^3/uL (0.0-0.6); ABSOLUTE LYMPHOCYTES (AUTO) 1.3 10^3/uL (0.5-4.7); ABSOLUTE MONOCYTES (AUTO) 0.8 10^3/uL (0.1-1.4); ABSOLUTE NEUT (AUTO) 5.1 10^3/uL (1.7-8.2); BASOPHILS % (AUTO) 0.8 % (0-2); EOSINOPHILS % (AUTO) 3.5 % (0-6); HEMOGLOBIN 10.3 g/dL (13.5-17.0); LYMPHOCYTES % (AUTO) 17.5 % (13-45); MEAN CORPUSCULAR HGB CONC 34.4 g/dL (32.0-36.0); MEAN CORPUSCULAR VOLUME 82 fl (80-97); PLATELET COUNT 403 10^3/uL (150-450); RED BLOOD COUNT 3.68 10^6/uL (4.35-5.55); RED CELL DISTRIBUTION WIDTH 16.3 % (11.5-14.0); SEGMENTED NEUTROPHILS % (AUTO) 68.2 % (42-78); TOTAL CELLS COUNTED % (AUTO) 100 %; WHITE BLOOD COUNT 7.5 10^3/uL (4.0-10.5)
[2018-02-01] MEDS: TIZANIDINE HCL 4 MG TABLET PO SCH ×3 (05:32→21:11)
[2018-02-01] MEDS: OXYCODONE-ACETAMINOPHEN 5-325 MG TABLET PO SCH ×4 (05:33→23:34)
[2018-02-01] MEDS: OXYCODONE HCL IR 5 MG TABLET PO SCH ×4 (05:33→23:32)
[2018-02-01 05:43] LABS: ANION GAP 13 (5-19); BLOOD UREA NITROGEN 16 mg/dL (7-20); CALCIUM 9.3 mg/dL (8.4-10.2); CARBON DIOXIDE 30 mmol/L (22-30); CHLORIDE 95 mmol/L (98-107); GLUCOSE 112 mg/dL (75-110); POTASSIUM 5.3 mmol/L (3.6-5.0); SODIUM 137.7 mmol/L (137-145)
[2018-02-01] MEDS: LISINOPRIL 10 MG TABLET PO SCH (09:10)
[2018-02-01] MEDS: NAPROXEN 250 MG TABLET PO SCH (09:10)
[2018-02-01] MEDS: ENOXAPARIN SODIUM INJ 40 MG/0.4 ML DISP.SYRIN SUBCUT SCH (09:11)
[2018-02-01] MEDS: BUDESONIDE/FORMOTEROL 160-4.5 MCG 60 PUFF/6 GM MDI IH SCH ×2 (09:12→17:21)
[2018-02-01] MEDS: NICOTINE 21 MG/24 HR PATCH.TD24 TD SCH (09:12)
[2018-02-01] MEDS: KETOROLAC TROMETHAMINE INJ/PF 30 MG/1 ML SDV IV PRN ×2 (09:13→16:08)
--- NOTE | 2018-02-01 13:18 | PDOC PROGRESS REPORT ---
Subjective Progress Note for:: 02/01/18 Subjective:: Doing better, still with back pains, but his medications helping. Still with cough, productive, denies fever or chills. He is still on droplet precautions/ respiratory isolation pending obtaining AFB's x3 samples. Plan is for likely bronchoscopy to tomorrow if AFBs are negative. Reason For Visit: COMMUNITY-ACQUIRED PNEUMONIA,CAVITARY LUNG LESION Physical Exam Vital Signs: Temp Pulse Resp BP Pulse Ox 97.9 F 92 18 137/65 H 99 02/01/18 11:40 02/01/18 11:40 02/01/18 11:40 02/01/18 11:40 02/01/18 11:40 Intake & Output 01/31/18 02/01/18 02/02/18 06:59 06:59 06:59 Intake Total 774 1927 Output Total 2800 2100 Balance -2025 Weight 62.4 kg 62 kg GENERAL: Well-developed, no acute distress HEENT: Normocephalic/atraumatic NECK supple, no JVD CARDIOVASCULAR: RRR, normal S1-S2 LUNGS: Slight crackles left upper lung zone ABDOMEN: Soft, NT, NL bowel sounds EXTREMITIES: No edema, clubbing, cyanosis NEUROLOGICAL: Alert, oriented x 3, nonfocal Results Laboratory Results: 02/01/18 04:59 02/01/18 04:59 02/01/18 02/01/18 04:59 04:59 WBC 7.5 RBC 3.68 L Hgb 10.3 L Hct 30.0 L MCV 82 MCH 28.0 MCHC 34.4 RDW 16.3 H Plt Count 403 Seg Neutrophils % 68.2 Lymphocytes % 17.5 Monocytes % 10.0 Eosinophils % 3.5 Basophils % 0.8 Absolute Neutrophils 5.1 Absolute Lymphocytes 1.3 Absolute Monocytes 0.8 Absolute Eosinophils 0.3 Absolute Basophils 0.1 Sodium 137.7 Potassium 5.3 H Chloride 95 L Carbon Dioxide 30 Anion Gap 13 BUN 16 Creatinine 0.82 Est GFR ( Amer) > 60 Est GFR (Non-Af Amer) > 60 Glucose 112 H Calcium 9.3 01/30/18 01:30 Sputum Gram Stain - Final 01/30/18 01:30 Sputum Sputum Culture - Final NORMAL AIMEE 01/29/18 02:07 Sputum Gram Stain - Final 01/29/18 02:07 Sputum Sputum Culture - Final Yeast, Not Yvette Albicans Reduced Normal Aimee 01/31/18 03:15 Sputum Gram Stain - Final 01/31/18 03:15 Sputum Sputum Culture - Final 01/29/18 02:07 Sputum AFB Smear Concentration - Final 01/29/18 02:07 Sputum Acid Fast Bacilli Smear - Final Impressions: Hip X-Ray 01/28/18 16:27 IMPRESSION: NO RADIOGRAPHIC EVIDENCE OF ACUTE INJURY. Chest CT 01/28/18 21:15 IMPRESSION: Biapical scarring and emphysematous changes, particularly in the left upper lobe including cavitary changes. There may be superimposed pneumonia of the left upper lobe. No definite suspicious focal masses. Chest X-Ray 01/31/18 07:00 IMPRESSION: Stable appearance of the chest with persistent volume loss and scarring in both upper lobes left greater than right. Assessment & Plan - Diagnosis (1) Left upper lobe pneumonia Qualifiers: Pneumonia type: due to unspecified organism Qualified Code(s): J18.1 - Lobar pneumonia, unspecified organism Is this a current diagnosis for this admission?: Yes Plan: Suspect community-acquired. Will continue to follow-up sputum AFB and bacterial culture results. We will continue antibiotics with Levaquin at this time, leukocytosis improved. Awaiting negative sputum AFB. I I discussed the positive yeast in sputum with the broadcast operations director and he suspects colonization. Will follow culture results. (2) Cavitary lesion of lung Is this a current diagnosis for this admission?: Yes Plan: Sputum being checked for AFB to rule out TB. First set is negative so far. Dr. Araujo of pulmonology consultation appreciated. Patient may need bronchoscopy after negative AFBs. (3) Hypertension Qualifiers: Hypertension type: essential hypertension Qualified Code(s): I10 - Essential (primary) hypertension Is this a current diagnosis for this admission?: Yes Plan: Patient's blood pressures were stable. Will continue d/c clonidine, reduced Zanaflex to 2 mg every 6 hours as needed. Continue to monitor BPs. (4) Tobacco dependence Is this a current diagnosis for this admission?: Yes Plan: Smoking cessation counseling. Continue with treat with nicotine patch. (5) Chronic back pain Is this a current diagnosis for this admission?: Yes Plan: Continue restart Percocet 10/325 mg every 6 hours as needed, Zanaflex. (6) Hyperkalemia Is this a current diagnosis for this admission?: No Plan: Potassium still is slightly up today at 5.3. Will treat with Kayexalate follow- up in a.m.
[2018-02-01] MEDS ORDERED: SODIUM POLYSTYRENE SULFONATE 15 GM/60 ML PO ONE (13:30)
[2018-02-01 20:29] LABS: INTERNATIONAL RATION (INR) 1.09; PROTHROMBIN TIME 14.7 SEC (11.4-15.4)
[2018-02-01 20:30] LABS: PARTIAL THROMBOPLASTIN TIME 42.2 SEC (23.5-35.8)
[2018-02-01 20:41] LABS: ANION GAP 12 (5-19); BLOOD UREA NITROGEN 18 mg/dL (7-20); CARBON DIOXIDE 29 mmol/L (22-30); CHLORIDE 91 mmol/L (98-107); GLUCOSE 105 mg/dL (75-110); POTASSIUM 4.9 mmol/L (3.6-5.0); SODIUM 132.4 mmol/L (137-145)
[2018-02-01] MEDS: ZOLPIDEM TARTRATE 5 MG TABLET PO SCH (21:11)
[2018-02-01] MEDS: LEVOFLOXACIN 750 MG TABLET PO SCH (21:11)
[2018-02-01] MEDS: TIOTROPIUM BROMIDE DPI 5 CAP/KIT (18 MCG/CAP) IH SCH (21:12)
[2018-02-01] MEDS: DULOXETINE HCL 30 MG CAPSULE.DR PO SCH (21:12)
[2018-02-02 05:06] LABS: ANION GAP 10 (5-19); BLOOD UREA NITROGEN 15 mg/dL (7-20); CALCIUM 9.1 mg/dL (8.4-10.2); CARBON DIOXIDE 31 mmol/L (22-30); CHLORIDE 97 mmol/L (98-107); GLUCOSE 104 mg/dL (75-110)
[2018-02-02] MEDS: OXYCODONE HCL IR 5 MG TABLET PO SCH ×3 (05:29→18:52)
[2018-02-02] MEDS: TIZANIDINE HCL 4 MG TABLET PO SCH ×3 (05:29→21:40)
[2018-02-02] MEDS: OXYCODONE-ACETAMINOPHEN 5-325 MG TABLET PO SCH ×3 (05:29→18:52)
[2018-02-02] MEDS ORDERED: KETOROLAC TROMETHAMINE INJ/PF 30 MG/1 ML SDV IV ONE (05:45)
--- NOTE | 2018-02-02 06:36 | PROGRESS NOTE E ---
Progress Note NAME: PHYLLIS GOODWIN : 1960 AGE: 57Y DATE: 02/01/2018 ROOM: 335 SUBJECTIVE: The patient is a 57-year-old male who came in for shortness of breath, chest tightness, and purulent sputum production over the last few days, admitted and chest crepitations in the right upper lobe. The sputum AFB done x3 days were negative for AFB smear. Currently feeling better. Treated for pneumonia with Levaquin 750 mg p.o. daily. He denies any fever, chills. No vomiting, diarrhea. Other chemistries done today showing potassium of 5.3. The patient was given Kayexalate at 2 p.m. this afternoon. The patient is getting Toradol injections p.r.n. for severe pain. OBJECTIVE: GENERAL: The patient is awake, alert, coherent, oriented x3. VITAL SIGNS: Afebrile, not in apparent respiratory distress with a temperature of 97.9 with a T-max of 98 degrees Fahrenheit, blood pressure is 137/65, heart rate of 62, respiratory rate is 18, saturation 99% on room air. EYES: No jaundice or pallor. EARS, NOSE, AND THROAT: No ear drainage. No nasal discharge. HEAD AND NECK: No scalp swelling. No neck tenderness. CHEST AND LUNGS: No wheezing. No rhonchi. No coarse crackles. CARDIOVASCULAR: S1, S2 distinct. Normal rate. Regular rhythm. ABDOMEN: Flabby. Positive bowel sounds. Soft, nondistended. EXTREMITIES: No joint swelling. No cellulitis. LABORATORY: CBC done today showed white count of 7.5, hemoglobin of 10.3, hematocrit is 30, and platelet count is 403. Chemistry done this morning showed sodium 127.7, potassium is 5.3, chloride 95, CO2 is 30, BUN 16, creatinine 0.82, glucose 112, and calcium is 9.3. ASSESSMENT: 1. PNEUMONIA, BILATERAL RIGHT AND LEFT, MORE ON THE LEFT SIDE WITH A POSSIBLE CREPITATION. 2. COPD/EMPHYSEMA WITH BULLA FORMATION. PLAN/RECOMMENDATIONS: 1. Will schedule patient for flexible bronchoscopy tomorrow. Will repeat the chemistry again tonight to evaluate the sputum production. 2. Will make the patient n.p.o. and order PT and PTT for tonight. NSAIDs may be discontinued for the patient if sputum AFB smears were negative x3 days. DICTATING PHYSICIAN: ROSARIO KAMARA MD,CHARISSE,MPH [id number] [id number] PHY#: [id number] ID: [id number] JOB#: [id number] ACCT: [id number] cc: > MTDD
[2018-02-02] MEDS: LISINOPRIL 10 MG TABLET PO SCH (09:11)
[2018-02-02] MEDS ORDERED: ONDANSETRON HCL INJ/PF 4 MG/2 ML SDV ONE (09:23)
[2018-02-02] MEDS ORDERED: GLUCAGON,HUMAN RECOMB 1 MG INJ ONE (09:24)
[2018-02-02] MEDS ORDERED: EPINEPHRINE INJ 1 MG/10 ML DISP.SYRIN ONE (09:24)
[2018-02-02] MEDS ORDERED: NALOXONE HCL INJ/PF 0.4 MG/1 ML SDV ONE (09:24)
[2018-02-02] MEDS ORDERED: FLUMAZENIL INJ 0.5 MG/5 ML VIAL ONE (09:24)
[2018-02-02] MEDS ORDERED: LIDOCAINE 2% JELLY 30 ML TUBE ONE (09:35)
[2018-02-02] MEDS ORDERED: LIDOCAINE 2% INJ (20 MG/ML) 20 ML MDV ONE (09:35)
[2018-02-02] MEDS: LIDOCAINE 2% INJ (20 MG/ML) 20 ML MDV ONE ×3 (10:09→10:42)
[2018-02-02] MEDS: FENTANYL CITRATE INJ/PF 100 MCG/2 ML AMPUL ONE ×9 (10:18→10:44)
[2018-02-02] MEDS: MIDAZOLAM 2 MG/2 ML INJ ONE ×12 (10:26→10:58)
[2018-02-02] MEDS ORDERED: FAMOTIDINE INJ/PF 20 MG/2 ML SDV IV ONE (10:30)
[2018-02-02] MEDS ORDERED: FENTANYL CITRATE INJ/PF 100 MCG/2 ML AMPUL IV ONE (10:30)
[2018-02-02] MEDS ORDERED: ALBUTEROL SULFATE 0.083% NEB 2.5 MG/3 ML AMPUL NEB ONE (11:19)
[2018-02-02] MEDS: BUDESONIDE/FORMOTEROL 160-4.5 MCG 60 PUFF/6 GM MDI IH SCH ×2 (11:25→18:53)
[2018-02-02] MEDS: NICOTINE 21 MG/24 HR PATCH.TD24 TD SCH (11:25)
[2018-02-02] MEDS ORDERED: ALBUTEROL SULFATE 0.083% NEB 2.5 MG/3 ML AMPUL NEB PRN (11:26)
[2018-02-02] MEDS ORDERED: GUAIFENESIN/D-METHORPHAN (200-20 MG) SYRUP 10 ML PO PRN (11:28)
[2018-02-02] MEDS: LANSOPRAZOLE 30 MG TAB.RAP.DR PO SCH (12:14)
[2018-02-02] MEDS ORDERED: LANSOPRAZOLE 15 MG TAB.RAP.DR PO SCH (12:30)
--- NOTE | 2018-02-02 14:04 | PDOC PROGRESS REPORT ---
Subjective Progress Note for:: 02/02/18 Subjective:: 57-year-old male admitted with left upper lobe pneumonia cavitary lesion on chest CT. Patient reports improving, still with back pains, but his medications helping. Still with cough, productive, denies fever or chills. He has now has negative AFBs and respiratory isolation has been discontinued. Plan is for bronchoscopy today. Reason For Visit: COMMUNITY-ACQUIRED PNEUMONIA,CAVITARY LUNG LESION Physical Exam Vital Signs: Temp Pulse Resp BP Pulse Ox 98.0 F 87 18 126/65 H 96 02/02/18 07:45 02/02/18 12:25 02/02/18 12:25 02/02/18 11:45 02/02/18 12:25 Intake & Output 02/01/18 02/02/18 02/03/18 06:59 06:59 06:59 Intake Total 1927 1600 150 Output Total 2100 2150 150 Balance -173 -550 0 Weight 62 kg 61.4 kg GENERAL: Well-developed, no acute distress HEENT: Normocephalic/atraumatic NECK supple, no JVD CARDIOVASCULAR: RRR, normal S1-S2 LUNGS: CTA bilaterally ABDOMEN: Soft, NT, NL bowel sounds EXTREMITIES: No edema, clubbing, cyanosis NEUROLOGICAL: Alert, oriented x 3, nonfocal Results Laboratory Results: 02/01/18 04:59 02/02/18 03:52 02/01/18 02/02/18 20:00 03:52 Sodium 132.4 L 138.0 Potassium 4.9 5.0 Chloride 91 L 97 L Carbon Dioxide 29 31 H Anion Gap 12 10 BUN 18 15 Creatinine 0.96 0.71 Est GFR ( Amer) > 60 > 60 Est GFR (Non-Af Amer) > 60 > 60 Glucose 105 104 Calcium 9.0 9.1 01/31/18 16:08 Sputum Gram Stain - Final 01/31/18 16:08 Sputum Sputum Culture - Final C.albicans/C.dubliniensis Reduced Normal Aimee 01/30/18 01:30 Sputum Fungal Smear - Final 01/30/18 01:30 Sputum Fungal Smear - Final 01/30/18 01:30 Sputum Gram Stain - Final 01/30/18 01:30 Sputum Sputum Culture - Final NORMAL AIMEE Impressions: Hip X-Ray 01/28/18 16:27 IMPRESSION: NO RADIOGRAPHIC EVIDENCE OF ACUTE INJURY. Chest CT 01/28/18 21:15 IMPRESSION: Biapical scarring and emphysematous changes, particularly in the left upper lobe including cavitary changes. There may be superimposed pneumonia of the left upper lobe. No definite suspicious focal masses. Chest X-Ray 01/31/18 07:00 IMPRESSION: Stable appearance of the chest with persistent volume loss and scarring in both upper lobes left greater than right. Assessment & Plan - Diagnosis (1) Left upper lobe pneumonia Qualifiers: Pneumonia type: due to unspecified organism Qualified Code(s): J18.1 - Lobar pneumonia, unspecified organism Is this a current diagnosis for this admission?: Yes Plan: Suspect community-acquired. Will continue to follow-up sputum AFB and bacterial culture results. We will continue antibiotics with Levaquin at this time, leukocytosis has improved. Sputum AFB negative and plan is for bronchoscopy today. I did discuss the positive yeast in sputum with the livestock laborer and he suspected colonization. Will follow culture results. Further, patient to have bronchoscopy today as earlier mentioned. (2) Cavitary lesion of lung Is this a current diagnosis for this admission?: Yes Plan: Sputum AFB negative so far. Dr. Araujo of pulmonology following and he plans on doing bronchoscopy today. (3) Hypertension Qualifiers: Hypertension type: essential hypertension Qualified Code(s): I10 - Essential (primary) hypertension Is this a current diagnosis for this admission?: Yes Plan: Patient's blood pressures have stabilized. Clonidine was discontinued and will continue to leave this off, Zanaflex was also reduced to 2 mg every 6 hours as needed. Continue to monitor BPs. (4) Tobacco dependence Is this a current diagnosis for this admission?: Yes Plan: Continued smoking cessation counseling. Continue with treat with nicotine patch. (5) Chronic back pain Is this a current diagnosis for this admission?: Yes Plan: Continue Percocet 10/325 mg every 6 hours as needed, Zanaflex. (6) Hyperkalemia Is this a current diagnosis for this admission?: No
[2018-02-02 14:54] LABS: FLUID SOURCE LUNG; FLUID TYPE BRONCHIAL WASH
[2018-02-02 14:55] LABS: FLUID APPEARANCE HAZY; FLUID COLOR COLORLESS
[2018-02-02 14:56] LABS: FLUID VISCOSITY SLIGHTLY VISCOUS
[2018-02-02] MEDS ORDERED: OXYCODONE HCL IR 5 MG TABLET PO ONE (16:45)
[2018-02-02] MEDS ORDERED: OXYCODONE-ACETAMINOPHEN 5-325 MG TABLET PO ONE (16:45)
--- NOTE | 2018-02-02 19:51 | OPERATIVE REPORT E ---
Operative Report NAME: PHYLLIS GOODWIN : 1960 AGE: 57Y DATE OF SURGERY: ROOM: 335 HISTORY: The patient is a 57-year-old male who came in with increased coughing with gross sputum production with a chest CT scan showing infiltrate involving both upper lobes, left more than right with cavitation formation in the left upper lobe and emphysema treated with possible pneumonia. Sputum AFB done for 3 days were all negative for AFB smear. Underwent flexible bronchoscopy today for bronchial washing and bronchoalveolar lavage on the left upper lobe. INDICATION: Pneumonia multilobar, left greater than right, and with cavitation left upper lobe. PROCEDURE: Flexible bronchoscopy with bronchial washing both lungs, and bronchoalveolar lavage left upper lobe. SURGEON: ROSARIO KAMARA M.D. ANESTHESIA: Topical anesthesia using 2% lidocaine solution to a total dose of 20 mL. SEDATION: Conscious sedation using IV Versed to a total dose of 6.5 mg and IV fentanyl to total dose of 200 mcg. BLOOD LOSS: None. DESCRIPTION OF PROCEDURE: Consent was obtained from the patient. The patient verbalized understanding of the indication, reason, potential complications for the procedure. The patient was connected to the night monitor, pulse oximetry, blood pressure monitor. The patient was given 2% lidocaine solution 5 mL via nebulizer and patient was given 2% lidocaine solution 3 mL via atomizer and sprayed into the posterior pharyngeal wall, and 2% lidocaine gel was applied to the posterior pharyngeal area until gag reflex is resolved. A mouthguard was placed on the patient. The patient was given Versed at increments of 0.5 mg for a total dose of 6.5 mg and the patient was given IV fentanyl at increments of 25 mcg for a total dose of 200 mcg. Flexible bronchoscope was inserted through the mouthguard. The vocal cords appeared normal; there were no lesions noted. The oropharyngeal area appeared normal. 1% lidocaine solution in aliquot of 3 mL was applied as the flexible bronchoscope was advanced to the vocal cords, trachea, erendira, and right and left mainstem bronchi and segmental bronchi. The trachea appeared normal. Erendira was sharp at the midline. Bronchial washing was performed on the right side. No endobronchial lesions noted and bronchial washing was done on the left side, also no endobronchial lesions noted. Bronchoalveolar lavage was performed twice in the left upper lobe. The patient was severely coughing during this procedure despite achieving maximum dose of lidocaine solution adjusted to his weight and maximum dose of IV fentanyl and high dose of IV Versed to total dose of 6.5 mg. The patient was given a nebulizer treatment 2.5 mg one time, one dose after the procedure. No significant wheezing was noted. No crackles or fine rales noted post procedure. The patient has been stable throughout the procedure and no severe desaturations/oxygen desaturations. The procedure was constrained by the patient's severe coughing. If the patient needs another flexible bronchoscopy in the future, the patient needs to be endotracheally intubated and with anesthesiology support. DICTATING PHYSICIAN: ROSARIO KAMARA MD,CHARISSE,MPH [id number] PHY#: [id number] ID: [id number] JOB#: [id number] ACCT: [id number] cc:ROSARIO KAMARA M.D. > MTDD
[2018-02-02] MEDS: TIOTROPIUM BROMIDE DPI 5 CAP/KIT (18 MCG/CAP) IH SCH (21:39)
[2018-02-02] MEDS: LEVOFLOXACIN 750 MG TABLET PO SCH (21:39)
[2018-02-02] MEDS: ZOLPIDEM TARTRATE 5 MG TABLET PO SCH (21:40)
[2018-02-02] MEDS: DULOXETINE HCL 30 MG CAPSULE.DR PO SCH (21:40)
[2018-02-03] MEDS: OXYCODONE-ACETAMINOPHEN 5-325 MG TABLET PO SCH ×3 (00:37→11:02)
[2018-02-03] MEDS: OXYCODONE HCL IR 5 MG TABLET PO SCH ×3 (00:38→11:02)
[2018-02-03] MEDS: LANSOPRAZOLE 30 MG TAB.RAP.DR PO SCH (06:04)
[2018-02-03] MEDS: TIZANIDINE HCL 4 MG TABLET PO SCH (06:04)
[2018-02-03] MEDS: BUDESONIDE/FORMOTEROL 160-4.5 MCG 60 PUFF/6 GM MDI IH SCH (09:36)
[2018-02-03] MEDS: LISINOPRIL 10 MG TABLET PO SCH (09:36)
[2018-02-03] MEDS: NICOTINE 21 MG/24 HR PATCH.TD24 TD SCH (09:38)
[2018-02-03] MEDS ORDERED: POLYETHYLENE GLYCOL 3350 POWDER 17 GM/1 PACKET PO SCH (10:00)
[2018-02-03] MEDS ORDERED: DOCUSATE SODIUM 100 MG CAPSULE PO SCH (10:00)
[2018-02-03 11:51] VITALS: BP 140/60
--- NOTE | 2018-02-03 12:10 | PDOC DISCHARGE SUMMARY ---
General - Admit/Disc Date/PCP Admission Date/Primary Care Provider: 01/29/18 00:11 Discharge Date: 02/03/18 - Discharge Diagnosis (1) Left upper lobe pneumonia Is this a current diagnosis for this admission?: Yes (2) Cavitary lesion of lung Is this a current diagnosis for this admission?: Yes (3) Hypertension Is this a current diagnosis for this admission?: Yes (4) Tobacco dependence Is this a current diagnosis for this admission?: Yes - Additional Information Resuscitation Status: Full Code Discharge Diet: As Tolerated Discharge Activity: Activity As Tolerated Prescriptions: Docusate Sodium [Colace 100 mg Capsule] 100 mg PO BID #60 capsule Levofloxacin [Levaquin 750 mg Tablet] 750 mg PO QHS #6 tablet Nicotine [Nicoderm 21 mg/24 Hr Transderm Patch] 1 each TD DAILY #14 patch.td24 Tiotropium [place] [Spiriva Handihaler 5 Cap/Kit (18 Mcg/Cap)] 1 cap IH QHS #30 kit Home Medications: Budesonide/Formoterol Fumarate [Symbicort 160-4.5 Mcg Inhaler] 1 puff IH BID 08/11 Clonidine HCl [Catapres 0.1 mg Tablet] 0.1 mg PO Q12 01/29/18 Duloxetine HCl [Cymbalta] 60 mg PO QHS 01/29/18 Gabapentin Enacarbil [Horizant] 600 mg PO BID 01/29/18 Lisinopril [Prinivil] 20 mg PO DAILY 01/29/18 Naproxen [Naprosyn] 500 mg PO BID 01/29/18 Oxycodone HCl/Acetaminophen [Percocet 10-325 mg Tablet] 1 each PO QID 01/29/18 Tizanidine HCl [Zanaflex 4 mg Tablet] 4 mg PO Q8 01/29/18 Zolpidem Tartrate [Ambien] 10 mg PO QHS 01/29/18 Albuterol Sulfate [Ventolin 0.083% Neb 2.5 mg/3 mL Ampul] 2.5 mg NEB [id number] PRN vial.neb 02/03/18 Docusate Sodium [Colace 100 mg Capsule] 100 mg PO BID #60 capsule 02/03/18 Levofloxacin [Levaquin 750 mg Tablet] 750 mg PO QHS #6 tablet 02/03/18 Nicotine [Nicoderm 21 mg/24 Hr Transderm Patch] 1 each TD DAILY #14 patch.td24 02/03/18 Polyethylene Glycol 3350 [Miralax Powder 17 gm/Packet] 17 gm PO DAILY powd.pack 02/03/18 Tiotropium [place] [Spiriva Handihaler 5 Cap/Kit (18 Mcg/Cap)] 1 cap IH QHS #30 kit 02/03/18 Zolpidem Tartrate [Ambien 5 mg Tablet] 5 mg PO QHS tablet 02/03/18 History of Present Illness History of Present Illness: PHYLLIS GOODWIN is a 57 year old male who was admitted for pneumonia and cavitary lesions- please see original H&P upon admission Hospital Course Hospital Course: after admission he was started on antibiotics. pulmonology was consulted for cavitary lesions- he had bronchoscopy performed on 02/02/18. AFB negative. [place] Tanner recommends discharge to home on Levaquin for 10 day course. he continues to have cough but he's also a smoker. i went over his management today. he's agreeable to discharge. he was started on spiriva- advised to continue. advised to stop smoking and started on nicotine patch. he understands he needs to follow up with pulm in 1-2 weeks. i answered al this questions. gave strict return precautions. Physical Exam Vital Signs: Temp Pulse Resp BP Pulse Ox 97.8 F 73 14 137/58 H 100 02/03/18 07:47 02/03/18 07:48 02/03/18 07:48 02/03/18 07:47 02/03/18 07:48 Intake & Output 02/02/18 02/03/18 02/04/18 06:59 06:59 06:59 Intake Total 1600 1071 Output Total 2150 650 Balance -550 421 Weight 135 lb 5.821 oz 138 lb 3.677 oz General appearance: PRESENT: no acute distress Head exam: PRESENT: atraumatic, normocephalic Eye exam: PRESENT: EOMI. ABSENT: scleral icterus Ear exam: PRESENT: normal external ear exam Mouth exam: PRESENT: moist, neck supple Teeth exam: PRESENT: poor dentation Neck exam: ABSENT: tracheal deviation Respiratory exam: PRESENT: decreased breath sounds - bilaterally but mostly at the bases, symmetrical. ABSENT: accessory muscle use Cardiovascular exam: PRESENT: +S1, +S2 Pulses: PRESENT: +2 pedal pulses bilateral GI/Abdominal exam: PRESENT: normal bowel sounds, soft. ABSENT: tenderness Extremities exam: ABSENT: +2 edema Neurological exam: PRESENT: alert, awake, oriented to person, oriented to place , oriented to time, oriented to situation, CN II-XII grossly intact Skin exam: PRESENT: dry, warm Results Laboratory Results: 02/01/18 04:59 02/02/18 03:52 02/02/18 11:00 Fluid Type BRONCHIAL WASH Fluid Source LUNG Fluid Color COLORLESS Fluid Appearance HAZY Fluid Viscosity SLIGHTLY VISCOUS Fluid WBC 298 Fluid RBC 130 01/31/18 03:15 Sputum Fungal Smear - Final 01/31/18 03:15 Sputum Fungal Smear - Final 01/31/18 03:15 Sputum AFB Smear Concentration - Final 01/31/18 03:15 Sputum Acid Fast Bacilli Smear - Final 01/30/18 01:30 Sputum AFB Smear Concentration - Final 01/30/18 01:30 Sputum Acid Fast Bacilli Smear - Final 01/31/18 16:08 Sputum Gram Stain - Final 01/31/18 16:08 Sputum Sputum Culture - Final C.albicans/C.dubliniensis Reduced Normal Aimee Impressions: Hip X-Ray 01/28/18 16:27 IMPRESSION: NO RADIOGRAPHIC EVIDENCE OF ACUTE INJURY. Chest CT 01/28/18 21:15 IMPRESSION: Biapical scarring and emphysematous changes, particularly in the left upper lobe including cavitary changes. There may be superimposed pneumonia of the left upper lobe. No definite suspicious focal masses. Chest X-Ray 01/31/18 07:00 IMPRESSION: Stable appearance of the chest with persistent volume loss and scarring in both upper lobes left greater than right. Qualifiers - * PATIENT BEING DISCHARGED WITH ANY OF THE FOLLOWING DIAGNOSIS: No Plan Time Spent: Less than 30 Minutes
--- NOTE | 2018-02-06 11:17 | PROGRESS NOTE E ---
Progress Note NAME: PHYLLIS GOODWIN : 1960 AGE: 57Y DATE: 02/01/2018 ROOM: 335 SUBJECTIVE: The patient is a 57-year-old male who came in with a cavitation, increased cough, and chest tightness, and purulent sputum production for a few days, peripheral pneumonia with cavitation. Sputum AFB smear for the last 2 days were negative. AFB culture is pending. *------* chest pain or worsening dyspnea. OBJECTIVE: GENERAL: The patient is awake, alert, coherent, oriented x3. VITAL SIGNS: A temperature of 97.9 with a T-max of 97.8, heart rate is 94, blood pressure is 137/65, respirations 16, saturations 99% on room air. EYES: No jaundice or pallor. EARS, NOSE, AND THROAT: No ear drainage. No nasal discharge. CHEST AND LUNGS: No wheezing. No rhonchi. No coarse crackles. CARDIOVASCULAR: S1, S2 distinct. Normal rate. Regular rhythm. ABDOMEN: Flabby. Positive bowel sounds. Soft, nondistended, nontender. EXTREMITIES: No joint swelling or cellulitis. LABORATORY: CBC done today showed white count of 7.5, hemoglobin is 10.3, hematocrit is 30.0, and platelet count is 403. Chemistry done this morning showed sodium is 137.7, phosphorus 5.3. END OF DICTATION DICTATING PHYSICIAN: ROSARIO KAMARA M.D. [id number] PHY#: [id number] ID: [id number] JOB#: [id number] ACCT: [id number] cc: >
== END 2018-02-03 12:24 | disposition home or self-care (01) | DRG 194 ==
LOC: ER 14:25 → OBSVTOIN 01-29 00:11 → EH 01-29 00:11 → 3S 01-29 02:22
PROVIDERS: ADMIT Internal Medicine; ATTEND Internal Medicine
PROC: 0BD78ZX Extraction of Left Main Bronchus, Via Natural or Artificial Opening Endoscopic, Diagnostic (ICD-10-PCS; 2018-02-02)
PROC: 0BD38ZX Extraction of Right Main Bronchus, Via Natural or Artificial Opening Endoscopic, Diagnostic (ICD-10-PCS; 2018-02-02)
PROC: 3E0F73Z Introduction of Anti-inflammatory into Respiratory Tract, Via Natural or Artificial Opening (ICD-10-PCS; 2018-02-02)
PROC: 0B9G8ZX Drainage of Left Upper Lung Lobe, Via Natural or Artificial Opening Endoscopic, Diagnostic (ICD-10-PCS; principal; 2018-02-02 10:00)
PROC: 3E02340 Introduction of Influenza Vaccine into Muscle, Percutaneous Approach (ICD-10-PCS; 2018-02-03)
DX: J18.1 Lobar pneumonia, unspecified organism (principal); J94.8 Other specified pleural conditions; I10 Essential (primary) hypertension; F17.210 Nicotine dependence, cigarettes, uncomplicated; J44.9 Chronic obstructive pulmonary disease, unspecified; F32.9 Major depressive disorder, single episode, unspecified; J43.9 Emphysema, unspecified; E87.5 Hyperkalemia; G89.29 Other chronic pain; M54.5 Low back pain; Z23 Encounter for immunization; Z79.899 Other long term (current) drug therapy
CPT/HCPCS: 31624; 36415; 71046; 71260; 80048; 80053; 80307; 81001; 85025; 85027; 85610; 85730; 86480; 87015; 87040; 87070; 87086; 87101; 87116; 87205; 87206; 88104; 89050; 90686; 94640; 94799; 96361; 96365; 96366; 96375; 99285; G0378; J0171; J1610; J1650; J1885; J1956; J2250; J2310; J2405; J3010; J3490; J7030; J7040; S0028

== ENCOUNTER 2019-12-10 14:01 | Emergency (ER) | payer MEDICAID ==
[2019-12-10] MEDS ORDERED: OXYCODONE-ACETAMINOPHEN 5-325 MG TABLET PO ONE (15:19)
[2019-12-10] MEDS ORDERED: PREDNISONE 20 MG TABLET PO ONE (15:19)
[2019-12-10] MEDS ORDERED: IPRATROPIUM/ALBUTEROL 0.5-2.5 MG/3 ML AMPUL NEB ONE (15:20)
--- NOTE | 2019-12-10 15:22 | ER Document Report ---
ED General - General Chief Complaint: Pain All Over Stated Complaint: BODY PAIN/DIARRHEA Time Seen by Provider: 12/10/19 14:51 Primary Care Provider: [facility] [Provider Group] - Follow up as needed ROSARIO KAMARA MD [Primary Care Provider] - Follow up as needed Information source: Patient Notes: Patient states he was attempting to walk backwards a month ago and tripped falling landing on his buttocks. Patient states since then he has had low back pain, hip pain that radiates into his legs. Patient reports a history of chronic back pain for which he has been seeing his primary doctor. Patient saw his doctor yesterday and was advised to come here for x-rays. Patient does have a order sheet for the x-rays at bedside. Patient feels that the pain has worsened recently which prompted him to check into the ER. TRAVEL OUTSIDE OF THE [place] IN LAST 30 DAYS: No - HPI Onset: Other - 1 month Onset/Duration: Persistent, Worse Quality of pain: Sharp Pain Level: 5 Associated symptoms: Nonproductive cough. denies: Productive cough, Fever, Nausea, Vomiting, Shortness of breath Exacerbated by: Sitting, Movement, Walking Relieved by: Denies Similar symptoms previously: Yes Recently seen / treated by doctor: Yes - Related Data Allergies/Adverse Reactions: No Known Allergies Allergy (Verified 12/10/19 16:32) Past Medical History - General Information source: Patient - Social History Smoking Status: Current Every Day Smoker Smoking Education Provided: Yes Frequency of alcohol use: Former Drug Abuse: None Occupation: None Family History: Reviewed & Not Pertinent - Past Medical History Cardiac Medical History: Reports: Hx Hypertension Pulmonary Medical History: Reports: Hx COPD Neurological Medical History: Denies: Hx Seizures Renal/ Medical History: Denies: Hx Peritoneal Dialysis Musculoskeletal Medical History: Reports Hx Musculoskeletal Deformity, Reports Hx Musculoskeletal Trauma Psychiatric Medical History: Reports: Hx Anxiety, Hx Depression Past Surgical History: Reports: Hx Orthopedic Surgery - back - patient unclear on details - Immunizations Hx Diphtheria, Pertussis, Tetanus Vaccination: Yes Hx Pneumococcal Vaccination: 03/27/13 Review of Systems - Review of Systems Constitutional: No symptoms reported. denies: Fever EENT: No symptoms reported Cardiovascular: No symptoms reported. denies: Chest pain Respiratory: Cough, Wheezing. denies: Short of breath Gastrointestinal: Diarrhea. denies: Abdominal pain Genitourinary: No symptoms reported Male Genitourinary: No symptoms reported Musculoskeletal: Back pain, Joint pain - Right hip pain Skin: Other - Abrasion to sacrum from a fall Hematologic/Lymphatic: No symptoms reported Neurological/Psychological: No symptoms reported Physical Exam - Vital signs Vitals: Temp Pulse Resp BP Pulse Ox 97.6 F 101 H 22 H 159/77 H 97 12/10/19 14:27 12/10/19 14:27 12/10/19 14:27 12/10/19 14:27 12/10/19 14:27 - General General appearance: Appears well, Alert In distress: None - HEENT Head: Normocephalic, Atraumatic Eyes: Normal Nasal: Normal Mouth/Lips: Normal Mucous membranes: Normal - Respiratory Respiratory status: No respiratory distress Chest status: Nontender Breath sounds: Nonproductive cough, Wheezing Chest palpation: Normal - Cardiovascular Rhythm: Regular Heart sounds: S1 appreciated, S2 appreciated - Back Back: Tender - Bilateral SI joint tenderness, Vertebra tenderness - Lower lumbar tenderness, sacral tenderness, no step-off or deformity - Extremities General upper extremity: Normal inspection, Normal ROM General lower extremity: Tender - Right hip tenderness Hip: Tender - Right hip tenderness, Pain with ROM. No: Deformity, Dislocation, Ecchymosis - Neurological Neuro grossly intact: Yes Cognition: Normal Calderon Coma Scale Eye Opening: Spontaneous Giddings Coma Scale Verbal: Oriented Calderon Coma Scale Motor: Obeys Commands Calderon Coma Scale Total: 15 - Psychological Associated symptoms: Normal affect, Normal mood - Skin Skin Temperature: Warm Skin Moisture: Dry Irregularity with: Tenderness, Inflammation Notes: Stage II pressure ulcer to the sacrum Course - Re-evaluation Re-evalutation: 12/10/19 17:51 Patient with a stage II pressure ulcer, patient states that this area started as an abrasion after his fall. Patient states due to his fall he has not been able to tolerate sitting and frequently will lay supine on his back. Patient advised that this can worsen the ulcer to the sacrum. An Allevyn dressing was placed. Patient encouraged to change positions frequently to avoid any worsening of this problem. Patient with a history of COPD and is currently still a smoker. Will provide patient with short course of steroid medication as well as inhaler for his symptoms. The patient presents with low back pain without signs of spinal cord compression, cauda equina syndrome, infection, aneurysm, or other serious etiology. The patient is neurologically intact. Given the extremely risk of these diagnoses further testing and evaluation for these possibilities does not appear to be indicated at this time. Patient has been instructed to return if the symptoms worsen or change in any way. - Vital Signs Vital signs: Temp Pulse Resp BP Pulse Ox 97.6 F 101 H 22 H 159/77 H 97 12/10/19 16:26 12/10/19 14:27 12/10/19 14:27 12/10/19 14:12/10/19 14:27 - Diagnostic Test Radiology reviewed: Reports reviewed Discharge - Discharge Clinical Impression: Chronic back pain Qualifiers: Back pain location: low back pain Back pain laterality: bilateral Sciatica presence: with sciatica Sciatica laterality: sciatica laterality unspecified Qualified Code(s): M54.40 - Lumbago with sciatica, unspecified side; G89.29 - Other chronic pain COPD (chronic obstructive pulmonary disease) Qualifiers: COPD type: unspecified COPD Qualified Code(s): J44.9 - Chronic obstructive pulmonary disease, unspecified Decubitus skin ulcer Qualifiers: Pressure injury location: sacral region Pressure injury stage: stage 2 Qualified Code(s): L89.152 - Pressure ulcer of sacral region, stage 2 Condition: Stable Disposition: HOME, SELF-CARE Instructions: Chronic Obstructive Lung Disease ([facility]), Ice Packs ([facility]), Low Back Pain ([facility]), Oral Narcotic Medication ([facility]), Stop Smoking ([facility]), Steroid Medication Additional Instructions: Return immediately for any new or worsening symptoms Followup with your primary care provider, call tomorrow to make a followup appointment Follow-up with orthopedics for further management, call to make a follow-up appointment Prescriptions: Prednisone [Deltasone 20 mg Tablet] 2 tab PO DAILY 5 Days #10 tablet Albuterol Sulfate [Proair Hfa Inhalation Aerosol 8.5 gm Mdi] 2 puff IH Q4 PRN #1 mdi PRN Reason: Referrals: ROSARIO KAMARA MD [Primary Care Provider] - Follow up as needed [facility] ([place] [Provider Group] - Follow up as needed
[2019-12-10] MEDS ORDERED: LOPERAMIDE HCL 2 MG CAPSULE PO ONE (16:21)
--- NOTE | 2019-12-10 17:34 | RADIOLOGY REPORT (SQ) ---
EXAM DESCRIPTION: SACRUM AND COCCYX IMAGES COMPLETED DATE/TIME: 12/10/2019 5:19 pm REASON FOR STUDY: low back/hip/sacral pain, fall 1 mo ago COMPARISON: None. NUMBER OF VIEWS: Three views. TECHNIQUE: AP, lateral, and tilt views of the sacrum and coccyx. LIMITATIONS: None. FINDINGS: MINERALIZATION: Normal. BONES: No acute fracture or dislocation. No worrisome bone lesions. SOFT TISSUES: No soft tissue swelling. No foreign body. OTHER: No other significant finding. IMPRESSION: NEGATIVE STUDY OF THE SACRUM AND COCCYX. TECHNICAL DOCUMENTATION: JOB ID: [id number] [employer]- All Rights Reserved Reading location - IP/workstation name: [email or web address]
--- NOTE | 2019-12-10 17:34 | RADIOLOGY REPORT (SQ) ---
EXAM DESCRIPTION: HIP RIGHT AP/LATERAL IMAGES COMPLETED DATE/TIME: 12/10/2019 5:19 pm REASON FOR STUDY: low back/hip/sacral pain, fall 1 mo ago COMPARISON: None. NUMBER OF VIEWS: Two views. TECHNIQUE: AP pelvis and additional frog legview of the right hip. LIMITATIONS: None. FINDINGS: MINERALIZATION: Normal. RIGHT HIP: No fracture or dislocation. No worrisome bone lesions. LEFT HIP: No fracture or dislocation. No worrisome bone lesions. Limited views. PUBIS AND ISCHIUM: No fracture. PELVIS: No fracture. SACRUM: No fracture or dislocation. No worrisome bone lesions. LOWER LUMBAR SPINE: No fracture or dislocation. No worrisome bone lesions. No significant disc disea se. SOFT TISSUES: No findings. OTHER: No other significant finding. IMPRESSION: NEGATIVE STUDY OF THE RIGHT HIP. NO RADIOGRAPHIC EVIDENCE OF ACUTE INJURY. TECHNICAL DOCUMENTATION: JOB ID: [id number] 2010 [employer]- All Rights Reserved Reading location - IP/workstation name: [email or web address]
--- NOTE | 2019-12-10 17:35 | RADIOLOGY REPORT (SQ) ---
EXAM DESCRIPTION: L SPINE WHOLE IMAGES COMPLETED DATE/TIME: 12/10/2019 5:19 pm REASON FOR STUDY: low back/hip/sacral pain, fall 1 mo ago COMPARISON: None. NUMBER OF VIEWS: Five views including obliques. TECHNIQUE: AP, lateral, oblique, and sacral radiographic images acquired of the lumbar spine. LIMITATIONS: None. FINDINGS: MINERALIZATION: Normal. SEGMENTATION: Normal. No transitional anatomy. ALIGNMENT: Normal. VERTEBRAE: Maintained height. No fracture or worrisome bone lesion. DISCS: There is mild disc narrowing at L3-4 and at L1-2. Small marginal osteophytes are present. POSTERIOR ELEMENTS: Pedicles and facets are intact. No pars defect or posterior arch defects. HARDWARE: None in the spine. PARASPINAL SOFT TISSUES: Normal. PELVIS: Intact as visualized. No fractures or worrisome bone lesions. SI joints intact. OTHER: No other significant finding. IMPRESSION: Mild degenerative disc disease and spondylosis. TECHNICAL DOCUMENTATION: JOB ID: [id number] 2010 [employer]- All Rights Reserved Reading location - IP/workstation name: [email or web address]
[2019-12-10] MEDS ORDERED: HYDROCODONE/ACETAMINOPHEN 5-325 MG (6 TAB/ER DISP) PO PRN (17:51)
[2019-12-10 18:02] VITALS: BP 140/54
== END 2019-12-10 18:17 | disposition home or self-care (01) ==
LOC: ER 14:01
DX: M47.26 Other spondylosis with radiculopathy, lumbar region (principal); M51.16 Intervertebral disc disorders with radiculopathy, lumbar region; S30.810A Abrasion of lower back and pelvis, initial encounter; M25.551 Pain in right hip; W19.XXXA Unspecified fall, initial encounter; Y93.01 Activity, walking, marching and hiking; G89.29 Other chronic pain; L89.152 Pressure ulcer of sacral region, stage 2; R05 Cough; F17.200 Nicotine dependence, unspecified, uncomplicated; I10 Essential (primary) hypertension; J44.9 Chronic obstructive pulmonary disease, unspecified; R19.7 Diarrhea, unspecified
CPT/HCPCS: 94640; 99283; 72220; 73502; 72110; J3490; J7512